=== PATIENT | male | born 1975 | race African-American/Black ===

== ENCOUNTER → 2019-12-08 17:38 | Outpatient (BNVA) | payer MEDICAID, SELFPAY | PROVIDERS: Family Provider Nurse Practitioner; PCP Nurse Practitioner; Visit Provider Nurse Practitioner Family | DX: G89.4 Chronic pain syndrome (principal); M54.16 Radiculopathy, lumbar region | CPT/HCPCS: 81000 ==

== ENCOUNTER → 2020-12-11 10:05 | Outpatient (BNVA) | payer MEDICAID, SELFPAY | PROVIDERS: Family Provider Nurse Practitioner; PCP Nurse Practitioner; Visit Provider Family Medicine Adult Medicine | DX: G89.4 Chronic pain syndrome (principal); M10.9 Gout, unspecified; M54.16 Radiculopathy, lumbar region; I10 Essential (primary) hypertension; E66.01 Morbid (severe) obesity due to excess calories; Z68.41 Body mass index [BMI] 40.0-44.9, adult; M19.90 Unspecified osteoarthritis, unspecified site | CPT/HCPCS: 80053; 80061; 83036; 84443; 84550; 85025 ==

== ENCOUNTER → 2021-09-26 08:39 | Outpatient (BNVA) | payer MEDICAID, SELFPAY | PROVIDERS: Family Provider Nurse Practitioner; PCP Family Medicine Adult Medicine; Visit Provider Family Medicine Adult Medicine | DX: I10 Essential (primary) hypertension (principal); E66.01 Morbid (severe) obesity due to excess calories; Z68.41 Body mass index [BMI] 40.0-44.9, adult; M10.9 Gout, unspecified; Z82.61 Family history of arthritis; G89.4 Chronic pain syndrome; M19.90 Unspecified osteoarthritis, unspecified site; Z13.6 Encounter for screening for cardiovascular disorders | CPT/HCPCS: 80053; 84550; 85025; 85651; 86140; 86160; 86162; 86235; 86255; 86376; 86431 ==

== ENCOUNTER → 2021-11-14 08:01 | Outpatient (BNVA) | payer MEDICAID, SELFPAY | PROVIDERS: Family Provider Nurse Practitioner; PCP Family Medicine Adult Medicine; Visit Provider Internal Medicine | DX: M10.9 Gout, unspecified (principal); M19.90 Unspecified osteoarthritis, unspecified site; G89.4 Chronic pain syndrome; Z11.59 Encounter for screening for other viral diseases; F17.210 Nicotine dependence, cigarettes, uncomplicated | CPT/HCPCS: 36415; 72040; 72100; 73620; 82306; 82550; 86200; 86704; 86803; 87340; 99204 ==

== ENCOUNTER → 2021-11-28 08:07 | Outpatient (BNVA) | payer MEDICAID, SELFPAY | PROVIDERS: Family Provider Nurse Practitioner; PCP Family Medicine Adult Medicine; Visit Provider Internal Medicine | DX: M10.9 Gout, unspecified (principal); M19.90 Unspecified osteoarthritis, unspecified site; Z79.899 Other long term (current) drug therapy; E55.9 Vitamin D deficiency, unspecified; F17.210 Nicotine dependence, cigarettes, uncomplicated | CPT/HCPCS: 99214 ==

== ENCOUNTER 2022-03-21 15:31 | Emergency (ER) | payer MEDICAID, SELFPAY ==
[2022-03-21 15:49] VITALS: BP 166/93; PULSE 92; RESP 18; TEMP 36.8; O2SAT 94; BMI 38.9
--- NOTE | 2022-03-21 16:02 | W.ED.BACK ---
HPI - Back Pain/Injury General: Chief Complaint: Back Pain/Injury Stated Complaint: Lower back pain Time Seen by Provider: 03/21/22 16:01 History of Present Illness: Patient is a 47-year-old male comes to the ED with lower back pain. Patient says 2 days ago he was lifting some furniture and felt some pain in the lower back afterwards. Denies any pain radiating down his legs. He has been taking Tylenol to help with pain. He rates his pain currently 8 out of 10 and it is in bilateral lumbar region. Denies any cauda equina symptoms. Denies any fall or trauma to cause back pain. Associated symptoms: Deny abdominal pain, chills, dysuria, fatigue, fever(s), hematuria, nausea or vomiting Review of Systems Const: Denies: fever(s), chills or fatigue Eyes: Denies: change in vision or eye discomfort ENMT: Denies: throat pain, odynophagia, nasal discharge or nasal congestion Card: Denies: chest pain, palpitations, edema, swelling of feet/ankles, dyspnea on exertion or orthopnea Resp: Denies: dyspnea, productive cough or non-productive cough GI: Denies: abdominal pain, nausea, vomiting, diarrhea, constipation or hematochezia : Denies: flank pain, difficulty urinating, dysuria or hematuria Musc: Reports: back pain; Denies: neck pain or extremity swelling Skin/Breast: Denies: rash or new lesions Neuro: Denies: headache(s), numbness in extremities or weakness in extremities [facility] ED PFSH: Medical History (Updated 03/21/22 @ 16:07 by JULIET Beatty) Chronic pain disorder Depression Family history of rheumatoid arthritis Gout Hypertension Morbid obesity with BMI of 40.0-44.9, adult Osteoarthritis Radiculopathy, lumbar region Uncontrolled stage 2 hypertension Surgical History History of nasal septoplasty Family History (Updated 11/14/21 @ 08:53 by Bela Espinosa LPN) Other Cancer Diabetes Hyperlipidemia Hypertension Lupus Rheumatoid arthritis Stroke Denies family history of CAD (coronary artery disease) Chronic kidney disease (CKD) Social History (Updated 11/14/21 @ 08:53 by Bela Espinosa LPN) Smoking and tobacco status: current some day smoker cigarettes [ Other cigarette details: socially] Alcohol intake: current Alcohol intake frequency: holidays/special occasions only Marital status: Number of children: 2 Current occupational status: disabled History of recent travel: No Physical Exam Const: COMMON NORMALS: patient oriented x3 and alert GENERAL APPEARANCE: cooperative and comfortable HENMT: COMMON NORMALS: normocephalic HEAD & SCALP: normocephalic MOUTH: Normal oral and palatal mucosa present THROAT: posterior oropharynx normal and uvula midline Neck/C-Spine: COMMON NORMALS: supple GENERAL: Yes normal visual inspection Resp: COMMON NORMALS: normal respiratory effort, No retractions, No use of accessory muscles and clear to auscultation bilaterally AUSCULTATION: clear to auscultation bilaterally Cardio: COMMON NORMALS: regular rate, regular rhythm, S1 normal heart sound present, S2 normal heart sound present, No gallops present (Cardio), No clicks present (Cardio), No murmurs present (Cardio) and Peripheral pulses 2+ throughout RATE: regular rate RHYTHM: regular rhythm HEART SOUNDS: S1 normal heart sound present and S2 normal heart sound present PERIPHERAL PULSES: Peripheral pulses 2+ throughout GI: COMMON NORMALS: Normal to inspection, nondistended, normoactive bowel sounds present, Soft to palpation, non-tender and no masses PALPATION: Yes Soft to palpation : COMMON NORMALS: Yes no CVA tenderness BLADDER/KIDNEY EXAM: Yes no CVA tenderness Back/Pelvis: COMMON NORMALS: no CVA tenderness LUMBAR SPINE/LOWER BACK: No lumbar spinal tenderness and Yes paraspinal muscle tenderness Lumbar paraspinal muscle tenderness: bilateral Extremity: COMMON NORMALS: normal to inspection Neuro: COMMON NORMALS: patient oriented x3 SENSORIUM/ORIENTATION: Yes alert GAIT: Yes Normal gait present Skin: GENERAL SKIN EXAM: dry skin Course Vital Signs: Vital signs: Vital Signs Temperature 98.3 F 03/21/22 15:49 Pulse Rate 92 03/21/22 15:49 Respiratory Rate 18 03/21/22 15:49 Blood Pressure 166/93 03/21/22 15:49 Pulse Oximetry 94 03/21/22 15:49 Oxygen Delivery Me thod 03/21/22 15:49 MDM - Back Pain/Injury Medical Decision Making Patient is a 47-year-old male comes to the ED with lower back pain. He says 2 days ago he was lifting some furniture and strained his lower back. Denies any cauda equina symptoms or any pain radiating down into his legs. Denies any trauma or fall to cause pain. Vitals are stable. Patient appears in no acute distress. He has some lumbar paraspinal muscle tenderness bilaterally and the rest of exam is benign. Patient was given a dose of Toradol, Norflex and steroid here in the ED. He was diagnosed with lumbar strain and discharged home with a prescription for Celebrex, muscle relaxer and steroid. Told to follow-up with PCP in the next week for reevaluation. Patient understood and agreed with plan. Discharge Plan Discharge Patient Disposition: Home Clinical Impression: Low back strain Qualifiers: Encounter type: initial encounter Qualified Code(s): S39.012A - Strain of muscle, fascia and tendon of lower back, initial encounter Condition: Stable Prescriptions: New Celebrex 100 mg capsule 100 mg PO BID PRN (Reason: pain) Qty: 30 0RF Medrol (Joseph) 4 mg tablets,dose pack See Rx Instructions .ROUTE .COMPLEX Qty: 21 0RF Rx Instructions: orally per package directions cyclobenzaprine 10 mg tablet 10 mg PO BID PRN (Reason: muscle spasm) Qty: 20 0RF No Action clonidine HCl 0.2 mg tablet 0.2 mg PO BID Qty: 60 5RF cholecalciferol (vitamin D3) 1,250 mcg (50,000 unit) capsule 50,000 unit PO .qweek Qty: 14 0RF colchicine 0.6 mg capsule See Rx Instructions PO .COMPLEX Qty: 30 0RF Rx Instructions: take TID x 5 days for onset of gout flare PO PRN; acetaminophen [Tylenol Arthritis Pain] 650 mg tablet extended release 2,600 mg PO Q8H Label Comments: takes 4-5 daily but can take up to 10 tabs daily allopurinol 100 mg tablet See Rx Instructions .ROUTE .COMPLEX Qty: 60 5RF Dose Instruction: TAKE 2 TABLETS BY MOUTH DAILY FOR GOUT Rx Instructions: TAKE 2 TABLETS BY MOUTH DAILY FOR GOUT amlodipine 10 mg tablet See Rx Instructions .ROUTE .COMPLEX Qty: 30 5RF Dose Instruction: TAKE 1 TABLET BY MOUTH DAILY Rx Instructions: TAKE 1 TABLET BY MOUTH DAILY lisinopril-hydrochlorothiazide 20-25 mg tablet See Rx Instructions .ROUTE .COMPLEX Qty: 30 5RF Dose Instruction: TAKE 1 TABLET BY MOUTH IN THE MORNING Rx Instructions: TAKE 1 TABLET BY MOUTH IN THE MORNING diclofenac sodium [Voltaren Arthritis Pain] 1 % gel 4 g topical QID Qty: 100 2RF Rx Instructions: apply to single knee, ankle, foot; for foot includes sole/toes/top of foot baclofen 10 mg tablet See Rx Instructions .ROUTE .COMPLEX Qty: 90 1RF Dose Instruction: TAKE 1 TABLET BY MOUTH THREE TIMES DAILY NEEDED FOR MUSCLE SPASM Rx Instructions: TAKE 1 TABLET BY MOUTH THREE TIMES DAILY NEEDED FOR MUSCLE SPASM prednisone 5 mg tablet 5 mg PO DAILY Qty: 45 3RF tizanidine 4 mg capsule 4 mg PO DAILY PRN (Reason: muscle spasticity) Qty: 30 3RF Rx Instructions: 1 cap at bedtime meloxicam 15 mg tablet See Rx Instructions .ROUTE .COMPLEX Qty: 30 2RF Dose Instruction: TAKE 1 TABLET BY MOUTH DAILY Rx Instructions: TAKE 1 TABLET BY MOUTH DAILY Discharge Orders: Discharge ED (Routine); Ordered 03/21/22 Ordered By: Ty Alvarenga Referrals: Forest Guo MD [Primary Care Provider] - Discharge Diet: Regular Discharge Activity: Increase activity as tolerated Patient Instructions: Low Back Strain (ED), Lower Back Exercises (ED) Activity Restrictions/Additional Instructions: Follow-up with medical provider as directed in the next 5 to 7 days reevaluation. Take medications as prescribed. Use heat pack on lower back to help with symptoms. Also stretch lower back muscles daily. Return to the ER or your medical provider if condition worsens. Please read and understand discharge instructions. Thank you for choosing [facility] for your healthcare needs today. Please realize this is an emergency room and that we are providing you with a medical screening exam and this may not be complete and all inclusive of all the testing and or work up that you may need to determine your ailment or severity of your illness. It is very important that you follow up as instructed or that you return to the Emergency Department should you have concerns or if your condition changes or worsens in any way. Coding Level of Care Code ED Slat Basket Maker Machine for Bony Dietrich Exam Comprehensive
[2022-03-21] MEDS: ketorolac 60 mg/2 mL INJ IM (16:15)
[2022-03-21] MEDS: orphenadrine 30 mg/mL Inj 2 mL 60 MG IM (16:16)
== END 2022-03-21 16:20 | disposition home or self-care (01) ==
PROVIDERS: Emergency Provider Physician Assistant; PCP Family Medicine Adult Medicine
DX: S39.012A Strain of muscle, fascia and tendon of lower back, initial encounter (principal); I10 Essential (primary) hypertension; F17.210 Nicotine dependence, cigarettes, uncomplicated; X50.0XXA Overexertion from strenuous movement or load, initial encounter
CPT/HCPCS: 96372; 99284; J1885; J2360; J2930

== ENCOUNTER → 2022-04-28 08:24 | Outpatient (BNVA) | payer MEDICAID, SELFPAY | PROVIDERS: PCP Family Medicine Adult Medicine; Visit Provider Anesthesiology Pain Medicine | DX: G89.29 Other chronic pain (principal); M54.16 Radiculopathy, lumbar region; M47.816 Spondylosis without myelopathy or radiculopathy, lumbar region; M25.562 Pain in left knee; E66.01 Morbid (severe) obesity due to excess calories; Z68.41 Body mass index [BMI] 40.0-44.9, adult; M25.561 Pain in right knee; Z87.891 Personal history of nicotine dependence | CPT/HCPCS: 99205 ==

== ENCOUNTER 2022-05-19 11:00 | Outpatient (CLI) | payer MEDICAID, SELFPAY ==
--- NOTE | 2022-05-19 11:02 | XR_ITS ---
WS: [id number] Exam: XR cervical spine 3V* [id number] Date/Time of Exam: 05/19/2022 11:03 AM Reason For Exam: M54.12 - Radiculopathy, cervical region Comparison 11/14/2021. No acute fracture or dislocation. There is straightening. Mild spondylosis from C4 to C7. Posterior e lements are intact. Normal paraspinal soft tissues. The odontoid is intact. XR/XR cervical spine 3V* [id number] IMPRESSION: 1. Straightening of the C-spine. No fracture or malalignment noted. No change.
== END 2022-05-19 11:01 | disposition home or self-care (01) ==
LOC: RAD 11:02
PROVIDERS: PCP Family Medicine Adult Medicine; Visit Provider Anesthesiology Pain Medicine
DX: M54.12 Radiculopathy, cervical region (principal)
CPT/HCPCS: 72040

== ENCOUNTER → 2022-06-05 08:37 | Outpatient (BNVA) | payer MEDICAID, SELFPAY | PROVIDERS: PCP Family Medicine Adult Medicine; Visit Provider Internal Medicine | DX: M10.9 Gout, unspecified (principal); M19.90 Unspecified osteoarthritis, unspecified site; M25.512 Pain in left shoulder; E55.9 Vitamin D deficiency, unspecified; E66.3 Overweight; Z68.39 Body mass index [BMI] 39.0-39.9, adult | CPT/HCPCS: 99214 ==

== ENCOUNTER 2022-06-10 06:47 | Outpatient (CLI) | payer MEDICAID, SELFPAY ==
--- NOTE | 2022-06-10 07:00 | CT_ITS ---
WS: [id number] CT LUMBAR SPINE TECHNIQUE: Noncontrast CT of the lumbar spine with coronal and sagittal reformatted images. CLINICAL INFORMATION: M54.16 - Radiculopathy, lumbar region COMPARISON: MRI 2006 DLP: 1812.[address] scans at [facility] use at least one of these dose optimization techniques: automated e xposure control; mA and/or kV adjustment per patient size (includes targeted exams where dose is matc hed to clinical indication); or iterative reconstruction. FINDINGS: Slight retrolisthesis L4 on L5. Vacuum disc phenomenon L4-L5 and L5-S1. Chronic spondylolysis L5-S1. No acute compression fractures. L1-L2: Mild facet arthropathy. Spinal canal and foramen are patent. L2-L3: Mild annular bulging. Slight effacement of the ventral thecal sac. Mild facet arthropathy. Sli ght narrowing of the subarticular recess bilaterally. Mild RIGHT foraminal narrowing. L3-L4: Mild annular bulging with slight impingement on the RIGHT subarticular recess and traversing R IGHT L4 nerve root. RIGHT foraminal protrusion impinges the exiting RIGHT L3 nerve root with moderate RIGHT foraminal narrowing. LEFT foramen appears patent. L4-L5: Slight retrolisthesis. Mild annular bulging. Suggestion of a shallow LEFT pericentral protrusi on with impingement on the traversing LEFT L5 nerve root. Mild central canal stenosis. Mild RIGHT gre ater than LEFT foraminal narrowing. Moderate facet arthropathy. L5-S1: Mild disc bulging with slight effacement of ventral thecal sac. Chronic spondylolysis. Slight effacement of ventral thecal sac. Moderate facet arthropathy. Moderate LEFT greater than RIGHT bony f oraminal narrowing. Subchondral cystic change along the sacroiliac joints bilaterally. CT/CT lumbar spine wo con* [id number] IMPRESSION: 1. RIGHT foraminal protrusion L3-L4 impinges the exiting RIGHT L3 nerve root w ith moderate RIGHT foraminal narrowing. Correlation RIGHT L3 nerve root symptom s. 2. Shallow LEFT pericentral protrusion L4-L5 impinges the traversing LEFT L5 n erve root in the subarticular recess. 3. Chronic spondylolysis L5-S1. No significant anterolisthesis. Vacuum disc ph enomenon at this level. 4. Moderate chronic bilateral bony foraminal narrowing L5-S1
== END 2022-06-10 06:48 | disposition home or self-care (01) ==
LOC: RAD 06:48
PROVIDERS: PCP Family Medicine Adult Medicine; Visit Provider Anesthesiology Pain Medicine
DX: M54.16 Radiculopathy, lumbar region (principal); M51.26 Other intervertebral disc displacement, lumbar region; M43.07 Spondylolysis, lumbosacral region
CPT/HCPCS: 72131

== ENCOUNTER 2022-06-10 07:02 | Outpatient (CLI) | payer MEDICAID, SELFPAY ==
--- NOTE | 2022-06-10 07:05 | XR_ITS ---
WS: [id number] Exam: XR shoulder LT min 2V* [id number] Date/Time of Exam: 06/10/2022 7:05 AM Reason For Exam: M06.9 - Rheumatoid arthritis, unspecified Comparison 09/24/2010. No fracture or dislocation. Moderate degenerative change of the glenohumeral joint and the AC joint. Bone spurring along the inferior margin of the AC joint. Normal soft tissues. XR/XR shoulder LT min 2V* [id number] IMPRESSION: 1. Moderate degenerative changes of the AC joint and glenohumeral joint. 2. No fracture or other significant finding.
[2022-06-10 07:52] LABS: Alanine Aminotransferase 29 U/L (0-41); Albumin Level 4.4 g/dL (3.5-5.2); Alkaline Phosphatase 104 U/L (40-130); Anion Gap 14.6 (5-19); Aspartate Amino Transferase 16 U/L (0-40); Blood Urea Nitrogen 13 mg/dL (6-20); Calcium 9.9 mg/dL (8.5-10.5); Carbon Dioxide 31 mmol/L (22-29); Chloride 101 mmol/L (98-107); Globulin 3.2 g/dL (1.3-4.6); Glomerular Filtration Rate 77.9 mL/min (90-130); Glucose 105 mg/dL (65-115); Osmolality Calculated 296 mOsm/kg (285-295); Potassium 3.6 mmol/L (3.5-5.1); Sodium 143 mmol/L (136-145); Total Bilirubin 0.5 mg/dL (0.15-1.2); Total Protein 7.6 g/dL (6.6-8.7); Uric Acid 6.8 mg/dL (3.4-7.0)
== END 2022-06-10 07:03 | disposition home or self-care (01) ==
LOC: RAD 07:04
PROVIDERS: PCP Family Medicine Adult Medicine; Visit Provider Internal Medicine
DX: M06.9 Rheumatoid arthritis, unspecified (principal); M25.512 Pain in left shoulder; M54.50 Low back pain, unspecified; R79.89 Other specified abnormal findings of blood chemistry
CPT/HCPCS: 73030; 80053; 84550

== ENCOUNTER → 2022-06-11 12:56 | Outpatient (BNVA) | payer MEDICAID, SELFPAY | PROVIDERS: PCP Family Medicine Adult Medicine; Visit Provider Anesthesiology Pain Medicine | DX: M17.11 Unilateral primary osteoarthritis, right knee (principal) | CPT/HCPCS: 20610; J1040; J3490 ==

== ENCOUNTER 2022-06-30 15:17 | Emergency (ER) | payer MEDICAID, SELFPAY ==
[2022-06-30 15:25] VITALS: PULSE 126; RESP 18; TEMP 37.4; O2SAT 94
[2022-06-30] MEDS: ketorolac 30 mg/mL INJ IVP (16:52)
[2022-06-30] MEDS: sodium chloride 0.9% 1,000 ML 999 ML IV ×2 (16:52→19:40)
[2022-06-30] MEDS: ondansetron 2 mg/ML SDV 2 mL 4 MG IVP ×2 (16:52→21:00)
[2022-06-30 17:19] LABS: Basophils % 0.2 %; Eosinophils % 0.3 %; Hematocrit 51.5 % (42.0-52.0); Hemoglobin 17.4 g/dL (11.7-16.6); Lymphocytes # 0.2 10^3/uL (0.8-4.8); Lymphocytes % 1.5 %; Mean Corpuscular HGB Conc 33.8 g/dL (30.0-36.0); Mean Corpuscular Hemoglobin 30.4 pg (28.0-34.0); Mean Corpuscular Volume 89.9 fl (80-94); Mean Platelet Volume 10.8 fL (7.4-10.4); Monocytes # 0.6 10^3/uL (0.2-0.9); Monocytes % 4.8 %; Neutrophils % 92.8 %; Nucleated Red Blood Cells % 0 %; Platelet Count 233 10^3/cmm (130-400); Red Blood Count 5.73 10^6/uL (4.1-5.3); Red Cell Distribution Width 12.9 % (12.1-15.1); White Blood Count 11.6 10^3/uL (4.0-10.0)
[2022-06-30 18:13] LABS: Alanine Aminotransferase 24 U/L (0-41); Albumin Level 3.8 g/dL (3.5-5.2); Alkaline Phosphatase 75 U/L (40-130); Anion Gap 13.5 (5-19); Aspartate Amino Transferase 13 U/L (0-40); Blood Urea Nitrogen 20 mg/dL (6-20); Calcium 8.6 mg/dL (8.5-10.5); Carbon Dioxide 28 mmol/L (22-29); Chloride 103 mmol/L (98-107); Globulin 3.2 g/dL (1.3-4.6); Glomerular Filtration Rate 77.9 mL/min (90-130); Glucose 132 mg/dL (65-115); Lipase 18 U/L (13-60); Osmolality Calculated 296 mOsm/kg (285-295); Potassium 3.5 mmol/L (3.5-5.1); Sodium 141 mmol/L (136-145); Total Bilirubin 0.7 mg/dL (0.15-1.2)
--- NOTE | 2022-06-30 18:43 | CTR_ITS ---
PROCEDURE INFORMATION: Exam: CT Abdomen And Pelvis With Contrast Exam date and time: 06/30/2022 8:02 PM Age: 47 years old Clinical indication: Nausea and vomiting; Abdominal pain; Generalized; Additional info: Abdominal pain, vomiting, elevated wbc TECHNIQUE: Imaging protocol: Computed tomography of the abdomen and pelvis with contrast. Radiation optimization: All CT scans at this facility use at least one of these dose optimization techniques: automated exposure control; mA and/or kV adjustment per patient size (includes targeted exams where dose is matched to clinical indication); or iterative reconstruction. Contrast material: OMNIPAQUE 350; Contrast volume: 95 ml; Contrast route: INTRAVENOUS (IV); COMPARISON: CT abdomen pelvis wo con [id number] 05/28/2016 4:24 AM RADIATION DOSE METRICS: Total DLP (mGy-cm): 1415.03 FINDINGS: Lungs: Bibasilar atelectasis versus infiltrate. Liver: Several hepatic cysts. Gallbladder and bile ducts: Cholelithiasis. Pancreas: Normal. No ductal dilation. Spleen: Normal. No splenomegaly. Adrenal glands: Normal. No mass. Kidneys and ureters: Normal. No hydronephrosis. Stomach and bowel: Prominent fluid in the small bowel without dilation suggestive of an enteritis. Diverticulosis without diverticulitis. Appendix: No evidence of appendicitis. Intraperitoneal space: Unremarkable. No free air. No significant fluid collection. Vasculature: Unremarkable. No abdominal aortic aneurysm. Lymph nodes: Unremarkable. No enlarged lymph nodes. Urinary bladder: Unremarkable as visualized. Reproductive: Unremarkable as visualized. Bones/joints: Chronic L5 pars interarticularis defects. Soft tissues: Small umbilical hernia containing omentum without bowel or inflammation. CT/CT abdomen pelvis w con* [id number] IMPRESSION: 1. Prominent fluid in the small bowel without dilation suggestive of an enteritis. 2. Chronic L5 pars interarticularis defects. 3. Bibasilar atelectasis versus infiltrate. 4. Several hepatic cysts. 5. Cholelithiasis. 6. Small umbilical hernia containing omentum without bowel or inflammation. 7. Diverticulosis without diverticulitis.
[2022-06-30] MEDS: acetaminophen 500 mg Tablet 1000 MG PO (19:05)
[2022-06-30 19:21] VITALS: BP 125/68; PULSE 120; RESP 17; TEMP 36.9; O2SAT 92
--- NOTE | 2022-06-30 19:28 | XRR_ITS ---
PROCEDURE INFORMATION: Exam: XR Chest Exam date and time: 06/30/2022 8:10 PM Age: 47 years old Clinical indication: Cough and fever and shortness of breath TECHNIQUE: Imaging protocol: Radiologic exam of the chest. Views: 2 views. COMPARISON: CR XR chest 1V [id number] 10/11/2018 2:53 PM FINDINGS: Lungs: Bibasilar atelectasis versus infiltrate. Pleural spaces: Unremarkable. No pleural effusion. No pneumothorax. Heart/Mediastinum: Cardiomegaly. Bones/joints: Unremarkable. XR/XR chest 2V* [id number] IMPRESSION: 1. Bibasilar atelectasis versus infiltrate. 2. Cardiomegaly.
--- NOTE | 2022-06-30 20:04 | W.ED.NAVMDI ---
HPI - Nausea/Vomiting/Diarrhea General: Chief complaint: Nausea/Vomiting/Diarrhea Stated complaint: D/V throwing up Time Seen by Provider: 06/30/22 16:17 History of Present Illness: Patient is in today for nausea, vomiting, diarrhea. He reports that he woke up this morning about 2 AM with significant nausea, vomiting, diarrhea. He reports he has had 3 diarrhea stools today and has thrown up 3 times today. He reports he is unable to keep any liquids down. He reports that he has felt feverish and chilled all day long. He reports significant body aches all over. Associated nausea: Yes Associated symtoms: Reports fatigue and nausea; Denies chest pain, dysuria or palpitations Review of Systems Const: Reports: fever(s), chills, body aches and fatigue Card: Denies: chest pain or palpitations Resp: Denies: dyspnea, productive cough or non-productive cough GI: Reports: abdominal pain, nausea and vomiting : Denies: flank pain, difficulty urinating, dysuria, urinary frequency, urinary urgency or urinary hesitancy PFSH ED PFSH: Medical History Chronic back pain Chronic pain disorder Depression Family history of [place]'s disease Family history of rheumatoid arthritis Gout Hypertension Morbid obesity with BMI of 40.0-44.9, adult BETHANIE on CPAP Osteoarthritis Radiculopathy, lumbar region Uncontrolled stage 2 hypertension Surgical History History of nasal septoplasty Family History Other Cancer Diabetes Hyperlipidemia Hypertension Lupus Rheumatoid arthritis Stroke Denies family history of CAD (coronary artery disease) Chronic kidney disease (CKD) Social History Smoking and tobacco status: former smoker Alcohol intake: current Alcohol intake frequency: holidays/special occasions only Desire information about alcohol rehabilitation?: No Counseling given: No Desire information about substance/drug rehabilitation?: No Counseling given: No Adopted: No Caregiver/support person: No Lives independently: Yes Marital status: Number of children: 2 Current occupational status: disabled History of recent travel: No Physical Exam Const: COMMON NORMALS: patient oriented x3 and alert OTHER: Patient is ill-appearing nontoxic Neck/C-Spine: COMMON NORMALS: no JVD Resp: COMMON NORMALS: normal respiratory effort, No use of accessory muscles and clear to auscultation bilaterally AUSCULTATION: clear to auscultation bilaterally Cardio: COMMON NORMALS: no JVD, regular rate, regular rhythm, S1 normal heart sound present, S2 normal heart sound present and No murmurs present (Cardio) RATE: regular rate RHYTHM: regular rhythm HEART SOUNDS: S1 normal heart sound present and S2 normal heart sound present GI: INSPECTION: Yes normal to inspection AUSCULTATION: Yes normoactive bowel sounds PALPATION: Yes Tenderness to palpation present (GI) (Epigastric) : COMMON NORMALS: Yes no CVA tenderness BLADDER/KIDNEY EXAM: Yes no CVA tenderness Back/Pelvis: COMMON NORMALS: no CVA tenderness Neuro: COMMON NORMALS: patient oriented x3 SENSORIUM/ORIENTATION: Yes alert Course Vital Signs: Vital signs: Vital Signs Temperature 98.4 F 06/30/22 21:53 Pulse Rate 119 H 06/30/22 21:53 Respiratory Rate 16 06/30/22 21:53 Blood Pressure 130/80 06/30/22 21:53 Pulse Oximetry 93 06/30/22 21:53 Oxygen Delivery Me thod 06/30/22 21:53 MDM - Nausea/Vomiting/Diarrhea Medical Decision Making Consider gastroenteritis, influenza, dehydration Toradol given for body aches, Zofran for nausea, IV fluids administered. Labs indicate a mildly elevated white blood cell count with some abdominal pain and a history of diverticulitis I will go ahead and order a CT scan abdomen. Patient SPO2 running 92 to 94% on room air. Add chest x-ray given patient's white count. Chest x-ray shows cardiomegaly and also atelectasis versus infiltrates. Patient has a history of uncontrolled hypertension I suspect the cardiomegaly is not a new finding however I cannot confirm this. Lungs are clear to auscultation on exam. Respirations are even and nonlabored. Minimal/trace amount bilateral lower extremity pedal edema. Patient denies a history of any heart problems except for high blood pressure. Second liter of fluid that was ordered is discontinued. Patient is able to tolerate p.o. fluids. We will continue to have patient hydrate via p.o. fluids rather than IV fluid bolus with a second liter. CT scan also shows hepatic cyst, cholelithiasis, diverticulosis, and prominent fluid in the small bowel without dilation suggestive of enteritis advised patient of findings on CT. Advised patient that symptoms are likely result of gastroenteritis. We discussed conservative care for this at home. We discussed the importance of staying hydrated. Send patient home with Zofran medication to help with nausea and vomiting. Also treat patient with Zithromax antibiotic to cover for community-acquired pneumonia. Advised patient on possible benefits and side effects of both medications. Patient is complaining of pain generalized body aches. He has received Toradol and Tylenol and is still reporting pain. I advised the patient that narcotics are typically not indicated in the case of body aches from fever and chills. Patient is insistent that he needs treatment for his pain prior to discharge. I did discuss the case with Dr. Armendariz who is agreeable to providing patient with a one-time dose of pain medication here. Advised patient of this. Discussed the need to cough and deep breathe at home to prevent further atelectasis development. Follow-up with primary care provider. Return to the ER as needed for any new or worsening symptoms including, but not limited to, inability to keep p.o. fluids down despite Zofran, inability to control fever despite Tylenol and Motrin, increased pain. Lab Data 06/30/22 16:39 06/30/22 16:39 Radiology Impressions Abdomen/Pelvis CT 06/30/22 18:43 IMPRESSION: 1. Prominent fluid in the small bowel without dilation suggestive of an enteritis. 2. Chronic L5 pars interarticularis defects. 3. Bibasilar atelectasis versus infiltrate. 4. Several hepatic cysts. 5. Cholelithiasis. 6. Small umbilical hernia containing omentum without bowel or inflammation. 7. Diverticulosis without diverticulitis. Chest X-Ray 06/30/22 19:28 IMPRESSION: 1. Bibasilar atelectasis versus infiltrate. 2. Cardiomegaly. Laboratory Results WBC 11.6 10^3/uL (4.0-10.0) H 06/30/22 16:39 RBC 5.73 10^6/uL (4.1-5.3) H 06/30/22 16:39 Hgb 17.4 g/dL (11.7-16.6) H 06/30/22 16:39 Hct 51.5 % (42.0-52.0) 06/30/22 16:39 MCV 89.9 fl (80-94) 06/30/22 16:39 MCH 30.4 pg (28.0-34.0) 06/30/22 16:39 MCHC 33.8 g/dL (30.0-36.0) 06/30/22 16:39 RDW 12.9 % (12.1-15.1) 06/30/22 16:39 Plt Count 233 10^3/cmm (130-400) 06/30/22 16:39 MPV 10.8 fL (7.4-10.4) H 06/30/22 16:39 Neut % (Auto) 92.8 % 06/30/22 16:39 Lymph % (Auto) 1.5 % 06/30/22 16:39 Charles % (Auto) 4.8 % 06/30/22 16:39 Eos % (Auto) 0.3 % 06/30/22 16:39 Baso % (Auto) 0.2 % 06/30/22 16:39 Neut # (Auto) 10.80 10^3/uL (1.8-7.7) H 06/30/22 16:39 Lymph # (Auto) 0.2 10^3/uL (0.8-4.8) L 06/30/22 16:39 Charles # (Auto) 0.6 10^3/uL (0.2-0.9) 06/30/22 16:39 Eos # (Auto) 0.0 10^3/uL (0.0-0.8) 06/30/22 16:39 Baso # (Auto) 0.0 10^3/uL (0.0-0.1) 06/30/22 16:39 Nucleated RBC % (auto) 0 % 06/30/22 16:39 Nucleated RBCs # 0.0 /100WBC 06/30/22 16:39 Sodium 141 mmol/L (136-145) 06/30/22 16:39 Potassium 3.5 mmol/L (3.5-5.1) 06/30/22 16:39 Chloride 103 mmol/L (98-107) 06/30/22 16:39 Carbon Dioxide 28 mmol/L (22-29) 06/30/22 16:39 Anion Gap 13.5 (5-19) 06/30/22 16:39 BUN 20 mg/dL (6-20) 06/30/22 16:39 Creatinine 1.2 mg/dL (0.7-1.2) 06/30/22 16:39 GFR Calculation 77.9 mL/min (90-130) L 06/30/22 16:39 Glucose 132 mg/dL (65-115) H 06/30/22 16:39 Calculated Osmolality 296 mOsm/kg (285-295) H 06/30/22 16:39 Calcium 8.6 mg/dL (8.5-10.5) 06/30/22 16:39 Total Bilirubin 0.7 mg/dL (0.15-1.2) 06/30/22 16:39 AST 13 U/L (0-40) 06/30/22 16:39 ALT 24 U/L (0-41) 06/30/22 16:39 Alkaline Phosphatase 75 U/L (40-130) 06/30/22 16:39 Total Protein 7.0 g/dL (6.6-8.7) 06/30/22 16:39 Albumin 3.8 g/dL (3.5-5.2) 06/30/22 16:39 Globulin 3.2 g/dL (1.3-4.6) 06/30/22 16:39 Lipase 18 U/L (13-60) 06/30/22 16:39 Discharge Plan Discharge Patient Disposition: Home Clinical Impression: Dehydration, Gastroenteritis, Atelectasis, Cardiomegaly Condition: Stable Prescriptions: New Zithromax Z-Joseph 250 mg tablet See Rx Instructions .ROUTE .COMPLEX Qty: 6 0RF Rx Instructions: For 250 mg dose pack: take 500 mg today (day 1), then 250 mg for 4 days (days 2-5) ondansetron 4 mg tablet,disintegrating 4 mg PO Q8H PRN (Reason: nausea and vomiting) 3 Days Qty: 9 0RF No Action colchicine 0.6 mg capsule See Rx Instructions PO .COMPLEX Qty: 30 0RF Rx Instructions: take TID x 5 days for onset of gout flare PO PRN; cyclobenzaprine 5 mg tablet 5 mg PO TID PRN (Reason: muscle spasm) Qty: 30 2RF prednisone 1 mg tablet See Rx Instructions PO DAILY Qty: 90 0RF Rx Instructions: part of a taper. 4mg po qday x 1 week, then 3mg po qday x 1 week, then 2.5mg po qday x 1 week, then 1mg orally daily; diclofenac sodium [Voltaren Arthritis Pain] 1 % gel 4 g topical QID Qty: 100 2RF Rx Instructions: apply to single knee, ankle, foot; for foot includes sole/toes/top of foot meloxicam 15 mg tablet See Rx Instructions .ROUTE .COMPLEX Qty: 30 2RF Dose Instruction: TAKE 1 TABLET BY MOUTH DAILY Rx Instructions: TAKE 1 TABLET BY MOUTH DAILY acetaminophen [Tylenol Arthritis Pain] 650 mg tablet extended release 2,600 mg PO Q8H Label Comments: takes 4-5 daily but can take up to 10 tabs daily methylprednisolone acetate [Depo-Medrol] 80 mg/mL suspension 80 mg Infiltration ONCE Qty: 1 0RF bupivacaine (PF) 0.25 % (2.5 mg/mL) solution 2.5 mg Infiltration ONCE Qty: 1 0RF methylprednisolone acetate [Depo-Medrol] 40 mg/mL suspension 40 mg Infiltration ONCE Qty: 1 0RF bupivacaine (PF) 0.25 % (2.5 mg/mL) solution 10 ml Infiltration ONCE Qty: 1 0RF prednisone 5 mg tablet 5 mg PO DAILY Qty: 45 3RF clonidine HCl 0.2 mg tablet 0.2 mg PO BID 30 Days Qty: 60 5RF allopurinol 100 mg tablet See Rx Instructions .ROUTE .COMPLEX Qty: 60 5RF Dose Instruction: TAKE 2 TABLETS BY MOUTH DAILY FOR GOUT Rx Instructions: TAKE 2 TABLETS BY MOUTH DAILY FOR GOUT amlodipine 10 mg tablet See Rx Instructions .ROUTE .COMPLEX Qty: 30 5RF Dose Instruction: TAKE 1 TABLET BY MOUTH DAILY Rx Instructions: TAKE 1 TABLET BY MOUTH DAILY lisinopril-hydrochlorothiazide 20-25 mg tablet See Rx Instructions .ROUTE .COMPLEX Qty: 30 5RF Dose Instruction: TAKE 1 TABLET BY MOUTH IN THE MORNING Rx Instructions: TAKE 1 TABLET BY MOUTH IN THE MORNING Celebrex 100 mg capsule 100 mg PO BID PRN (Reason: pain) Qty: 30 0RF cyclobenzaprine 10 mg tablet 10 mg PO BID PRN (Reason: muscle spasm) Qty: 20 0RF Discharge Orders: Discharge ED (Routine); Ordered 06/30/22 Ordered By: Lisa Lee Referrals: Forest Guo MD [Primary Care Provider] - Discharge Diet: As Directed Discharge Activity: Increase activity as tolerated Patient Instructions: Dehydration (ED), Acute Nausea and Vomiting (ED), Atelectasis (ED) Activity Restrictions/Additional Instructions: I recommend that if clear liquid diet for the next 24 hours then slowly advance to diet as tolerated with bland foods. Use the Zofran as directed as needed to help with nausea so that you are able to keep oral liquids down. Take antibiotics as directed. Make sure that you are coughing and deep breathing several times an hour to make sure that you are expanding the lungs fully to prevent development of pneumonia. Alternate Tylenol Motrin as needed for body aches, fever. Follow-up with primary care provider as needed. Return to the ER as needed for new or worsening symptoms. Coding Level of Care Code ED Ball Machine Operator for Chg Fwd Exam Detailed
[2022-06-30] MEDS: HYDROcodone-acetaminophen 5-325 mg Tablet 1 TAB PO (21:36)
[2022-06-30 21:53] VITALS: BP 130/80; PULSE 119; RESP 16; TEMP 36.9; O2SAT 93
== END 2022-06-30 21:51 | disposition home or self-care (01) ==
PROVIDERS: Emergency Provider Nurse Practitioner Family; PCP Family Medicine Adult Medicine
DX: K52.9 Noninfective gastroenteritis and colitis, unspecified (principal); E86.0 Dehydration; J98.11 Atelectasis; I51.7 Cardiomegaly; Z87.891 Personal history of nicotine dependence
CPT/HCPCS: 36415; 71046; 74177; 80053; 83690; 85025; 96361; 96374; 96375; 96376; 99285; J1885; J2405; J7030; Q9967

== ENCOUNTER 2022-08-12 20:00 | Outpatient (CLI) | payer MEDICAID, SELFPAY | END 2022-08-12 20:01 | disposition home or self-care (01) | LOC: SLEEP 08-13 07:21 | PROVIDERS: PCP Family Medicine Adult Medicine; Visit Provider Family Medicine Adult Medicine | DX: G47.33 Obstructive sleep apnea (adult) (pediatric) (principal) | CPT/HCPCS: 95810 ==

== ENCOUNTER → 2022-09-01 10:25 | Outpatient (BNVA) | payer MEDICAID, SELFPAY | PROVIDERS: PCP Family Medicine Adult Medicine; Visit Provider Internal Medicine | DX: M10.9 Gout, unspecified (principal); M19.90 Unspecified osteoarthritis, unspecified site; E55.9 Vitamin D deficiency, unspecified | CPT/HCPCS: 99213 ==

== ENCOUNTER → 2022-09-07 09:46 | Outpatient (BNVA) | payer MEDICAID, SELFPAY | PROVIDERS: PCP Family Medicine Adult Medicine; Visit Provider Anesthesiology Pain Medicine | DX: G89.29 Other chronic pain (principal); M25.562 Pain in left knee; M54.50 Low back pain, unspecified; M25.512 Pain in left shoulder; M19.90 Unspecified osteoarthritis, unspecified site; M47.816 Spondylosis without myelopathy or radiculopathy, lumbar region; E66.01 Morbid (severe) obesity due to excess calories; Z68.41 Body mass index [BMI] 40.0-44.9, adult | CPT/HCPCS: 99213; 99214 ==

== ENCOUNTER → 2022-09-24 13:40 | Outpatient (BNVA) | payer MEDICAID, SELFPAY | PROVIDERS: PCP Family Medicine Adult Medicine; Visit Provider Anesthesiology Pain Medicine | DX: G89.29 Other chronic pain (principal); M25.562 Pain in left knee; M19.012 Primary osteoarthritis, left shoulder | CPT/HCPCS: 20610 ==

== ENCOUNTER 2022-10-15 07:28 | Outpatient (CLI) | payer MEDICAID, SELFPAY ==
[2022-10-15 07:52] LABS: Basophils % 0.3 %; Eosinophils # 0.2 10^3/uL (0.0-0.8); Eosinophils % 2.6 %; Hematocrit 46.9 % (42.0-52.0); Hemoglobin 15.7 g/dL (11.7-16.6); Lymphocytes # 2.1 10^3/uL (0.8-4.8); Lymphocytes % 28.6 %; Mean Corpuscular HGB Conc 33.5 g/dL (30.0-36.0); Mean Corpuscular Volume 86.5 fl (80-94); Mean Platelet Volume 10.3 fL (7.4-10.4); Monocytes # 0.6 10^3/uL (0.2-0.9); Monocytes % 8.5 %; Neutrophils # 4.43 10^3/uL (1.8-7.7); Neutrophils % 59.6 %; Nucleated Red Blood Cells % 0 %; Platelet Count 287 10^3/cmm (130-400); Red Blood Count 5.42 10^6/uL (4.1-5.3); Red Cell Distribution Width 12.6 % (12.1-15.1); White Blood Count 7.4 10^3/uL (4.0-10.0)
[2022-10-15 08:00] LABS: Erythrocyte Sedimentation Rate 8 mm/hr (0-10)
[2022-10-15 08:15] LABS: Alanine Aminotransferase 39 U/L (0-41); Albumin Level 4.1 g/dL (3.5-5.2); Alkaline Phosphatase 90 U/L (40-130); Anion Gap 15.4 (5-19); Aspartate Amino Transferase 21 U/L (0-40); Blood Urea Nitrogen 15 mg/dL (6-20); Calcium 9.5 mg/dL (8.5-10.5); Carbon Dioxide 32 mmol/L (22-29); Chloride 103 mmol/L (98-107); Globulin 3.3 g/dL (1.3-4.6); Glucose 105 mg/dL (65-115); Osmolality Calculated 305 mOsm/kg (285-295); Potassium 3.4 mmol/L (3.5-5.1); Sodium 147 mmol/L (136-145); Total Bilirubin 0.5 mg/dL (0.15-1.2); Total Protein 7.4 g/dL (6.6-8.7); Uric Acid 7.4 mg/dL (3.4-7.0)
--- NOTE | 2022-10-15 13:13 | XR_ITS ---
WS: [id number] EXAMINATION: XR knee RT 1-2V [id number] REASON FOR EXAM: M10.9 - Gout, unspecified COMPARISON: 09/24/2010 ORDER DATE: 10/15/2022 1:17 PM FINDINGS: There is no sign of any acute osseous or articular abnormality with a minor ossicle or spur projectin g from the medial tibial spine. There are no specific soft tissue abnormalities. XR/XR knee RT 1-2V [id number] IMPRESSION: No acute change
--- NOTE | 2022-10-15 13:13 | XR_ITS ---
WS: [id number] EXAMINATION: XR knee LT 1-2V [id number] REASON FOR EXAM: M10.9 - Gout, unspecified COMPARISON: None available. ORDER DATE: 10/15/2022 1:17 PM FINDINGS: There is no sign of any acute osseous or articular abnormality. There are no specific soft tissue abn ormalities. XR/XR knee LT 1-2V [id number] IMPRESSION: No acute abnormality
== END 2022-10-15 07:29 | disposition home or self-care (01) ==
PROVIDERS: PCP Family Medicine Adult Medicine; Visit Provider Internal Medicine
DX: M10.9 Gout, unspecified (principal); M19.90 Unspecified osteoarthritis, unspecified site; M25.512 Pain in left shoulder; M54.50 Low back pain, unspecified; R79.89 Other specified abnormal findings of blood chemistry; I10 Essential (primary) hypertension
CPT/HCPCS: 36415; 73560; 80053; 84550; 85025; 85651; 86140; 99213

== ENCOUNTER 2022-12-03 20:00 | Outpatient (CLI) | payer MEDICAID, SELFPAY | END 2022-12-03 20:01 | disposition home or self-care (01) | LOC: SLEEP 12-04 04:31 | PROVIDERS: PCP Family Medicine Adult Medicine; Visit Provider Family Medicine Adult Medicine | DX: G47.33 Obstructive sleep apnea (adult) (pediatric) (principal) | CPT/HCPCS: 95811 ==

== ENCOUNTER → 2023-01-07 10:38 | Outpatient (BNVA) | payer MEDICAID, SELFPAY | PROVIDERS: PCP Family Medicine Adult Medicine; Visit Provider Anesthesiology Pain Medicine | DX: G89.29 Other chronic pain (principal); M47.816 Spondylosis without myelopathy or radiculopathy, lumbar region; M25.562 Pain in left knee; M25.512 Pain in left shoulder; M19.90 Unspecified osteoarthritis, unspecified site; E66.01 Morbid (severe) obesity due to excess calories; Z68.41 Body mass index [BMI] 40.0-44.9, adult; Z68.38 Body mass index [BMI] 38.0-38.9, adult | CPT/HCPCS: 99214 ==

== ENCOUNTER → 2023-02-03 09:20 | Outpatient (BNVA) | payer MEDICAID, SELFPAY | PROVIDERS: PCP Family Medicine Adult Medicine; Visit Provider Internal Medicine | DX: R79.89 Other specified abnormal findings of blood chemistry (principal); M10.9 Gout, unspecified; M19.90 Unspecified osteoarthritis, unspecified site | CPT/HCPCS: 99213 ==

== ENCOUNTER 2023-03-29 12:21 | Emergency (ER) | payer MEDICAID, SELFPAY ==
[2023-03-29 12:27] VITALS: BP 140/80; PULSE 90; RESP 16; TEMP 36.9; O2SAT 93; BMI 39.5
--- NOTE | 2023-03-29 13:06 | W.ED.BACK ---
HPI - Back Pain/Injury General: Chief Complaint: Extremity Injury, Lower Stated Complaint: lower back pain Time Seen by Provider: 03/29/23 12:43 Source: patient Mode of arrival: ambulatory History of Present Illness: 48-year-old male presents emergency room with complaint of low back pain. This been a chronic issue for him obesity pain clinic. He has had procedures set known disc disease in the past no recent precipitating events is progressively been worsening. Most he can think it might of happened in his seat tweaked his back when he rolled over in bed. No dysuria urgency or frequency or hematuria. He has seen pain clinic in the past has not been seeing them recently. MD elicited complaint: back pain Pertinent past history: prior back pain Onset (ago): day(s) Timing: constant Severity: moderate Similar Symptoms Previously: Yes Quality: sharp Location: lumbar spine Exacerbating factors: none Relieving factors: none Associated symptoms: Deny abdominal pain, arthralgias, chills, change in bowel habits, difficulty walking, dysuria, fatigue, fecal incontinence, fever(s), hematuria, myalgias, nausea, numbness, syncope, tingling/numbness/burning, urinary frequency, urinary urgency, vomiting or weakness Review of Systems Const: Denies: fever(s), chills or fatigue Card: Denies: chest pain or syncope Resp: Denies: dyspnea, productive cough or non-productive cough GI: Denies: abdominal pain, nausea, vomiting, fecal incontinence or change in bowel habits : Denies: dysuria, urinary frequency, urinary urgency or hematuria Skin/Breast: Denies: rash or pruritus Neuro: Denies: difficulty walking PFS ED PFSH: Medical History Chronic back pain Chronic pain disorder Depression Family history of [place]'s disease Family history of rheumatoid arthritis Hypertension Morbid obesity with BMI of 40.0-44.9, adult Morbid obesity with BMI of 40.0-44.9, adult Osteoarthritis Left shoulder, left knee, chronic back pain Radiculopathy, lumbar region Uncontrolled stage 2 hypertension Surgical History History of nasal septoplasty Family History Other Cancer Diabetes Hyperlipidemia Hypertension Lupus Rheumatoid arthritis Stroke Denies family history of CAD (coronary artery disease) Chronic kidney disease (CKD) Social History Smoking and tobacco status: former smoker Alcohol intake: current Alcohol intake frequency: holidays/special occasions only Desire information about alcohol rehabilitation?: No Counseling given: No Substance/Drug Use: never Desire information about substance/drug rehabilitation?: No Counseling given: No Adopted: No Caregiver/support person: No Lives independently: Yes Marital status: Number of children: 2 Current occupational status: disabled Physical Exam Const: COMMON NORMALS: no acute distress GENERAL APPEARANCE: cooperative and comfortable ORIENTATION/CONSCIOUSNESS: Yes awake, Yes oriented to person, Yes oriented to place and Yes oriented to time HENMT: COMMON NORMALS: normocephalic, atraumatic and hearing grossly normal bilaterally HEAD & SCALP: normocephalic and atraumatic Resp: COMMON NORMALS: normal respiratory effort, No retractions, No use of accessory muscles and clear to auscultation bilaterally AUSCULTATION: clear to auscultation bilaterally Cardio: COMMON NORMALS: regular rate, regular rhythm and No murmurs present (Cardio) RATE: regular rate RHYTHM: regular rhythm Extremity: COMMON NORMALS: normal to inspection, capillary refill normal, no clubbing, cyanosis or edema, no calf tenderness and no pedal edema Neuro: SENSORIUM/ORIENTATION: Yes oriented to person, Yes oriented to place and Yes oriented to time Skin: COMMON NORMALS: no rashes or lesions noted GENERAL SKIN EXAM: no rashes or lesions noted Course Vital Signs: Vital signs: Vital Signs Temperature 98.4 F 03/29/23 12:27 Pulse Rate 86 03/29/23 13:16 Respiratory Rate 18 03/29/23 13:16 Blood Pressure 107/82 03/29/23 13:16 Pulse Oximetry 96 03/29/23 13:16 Oxygen Delivery Me thod Room Air 03/29/23 13:16 MDM - Back Pain/Injury Medical Decision Making Improved with meds given. We will put on prednisone taper increased diclofenac 75 twice daily continue baclofen follow-up with primary care return if has further problems. No red flag symptoms on his back. Medical Records I reviewed the patient's medical records. Discharge Plan Discharge Patient Disposition: Home Clinical Impression: Chronic back pain Condition: Stable Prescriptions: New prednisone 20 mg tablet 20 mg PO TID Qty: 15 0RF Rx Instructions: 1 p.o. 3 times daily x3 days, 1 p.o. twice daily x2 days, 1 p.o. daily x2 days diclofenac sodium 75 mg tablet,delayed release (DR/EC) 75 mg PO Q12H PRN (Reason: pain) Qty: 20 0RF No Action acetaminophen [Tylenol Arthritis Pain] 650 mg tablet extended release 2,600 mg PO Q8H Patient Comments: takes 4-5 daily but can take up to 10 tabs daily allopurinol 100 mg tablet See Rx Instructions .ROUTE .COMPLEX Qty: 60 5RF Dose Instruction: TAKE 2 TABLETS BY MOUTH DAILY FOR GOUT Rx Instructions: TAKE 2 TABLETS BY MOUTH DAILY FOR GOUT diclofenac sodium [Voltaren Arthritis Pain] 1 % gel 4 g topical QID Qty: 100 2RF Rx Instructions: apply to single knee, ankle, foot; for foot includes sole/toes/top of foot diclofenac potassium 50 mg tablet 50 mg PO BID Qty: 60 3RF baclofen 10 mg tablet 10 mg PO TID Qty: 90 2RF colchicine (gout) 0.6 mg capsule See Rx Instructions PO .COMPLEX Qty: 60 0RF Rx Instructions: take TID x 5 days for onset of gout flare PO PRN; lisinopril-hydrochlorothiazide 20-25 mg tablet See Rx Instructions .ROUTE .COMPLEX Qty: 60 5RF Dose Instruction: TAKE 1 TABLET BY MOUTH IN THE MORNING Rx Instructions: TAKE 2 TABLET BY MOUTH IN THE MORNING clonidine HCl 0.2 mg tablet 0.2 mg PO BID 30 Days Qty: 60 5RF (DME) BiPap See Rx Instructions .Route .MEDSUPPLY Qty: 1 0RF Rx Instructions: As directed fluticasone propionate 50 mcg/actuation spray,suspension 2 spray intranasal DAILY Qty: 16 3RF Rx Instructions: administer into each nostril amlodipine 10 mg tablet See Rx Instructions .ROUTE .COMPLEX Qty: 30 5RF Dose Instruction: TAKE 1 TABLET BY MOUTH DAILY Rx Instructions: TAKE 1 TABLET BY MOUTH DAILY Discharge Orders: Discharge ED (Routine); Ordered 03/29/23 Ordered By: John Rhodes Referrals: Forest Guo MD [Primary Care Provider] - Discharge Diet: Usual diet Discharge Activity: Increase activity as tolerated Patient Instructions: Opioid Safety, Pain Management Activity Restrictions/Additional Instructions: Follow-up with your primary care doctor or pain management for continued treatment. Chronic low back pain. Coding Level of Care Code ED Solar Project Coordination Specialist for Bony Dietrich
[2023-03-29] MEDS: orphenadrine 30 mg/mL Inj 2 mL 60 MG IVP (13:08)
[2023-03-29] MEDS: dexamethasone 10 mg/mL INJ IVP (13:08)
[2023-03-29] MEDS: ketorolac 30 mg/mL INJ IVP (13:08)
[2023-03-29 13:16] VITALS: BP 107/82; PULSE 86; RESP 18; O2SAT 96
== END 2023-03-29 14:42 | disposition home or self-care (01) ==
PROVIDERS: Emergency Provider Family Medicine; PCP Family Medicine Adult Medicine
DX: G89.29 Other chronic pain (principal); M54.50 Low back pain, unspecified; Z87.891 Personal history of nicotine dependence; I10 Essential (primary) hypertension
CPT/HCPCS: 96374; 96375; 99284; J1100; J1885; J2360

== ENCOUNTER → 2023-06-07 10:55 | Outpatient (BNVA) | payer MEDICAID, SELFPAY | PROVIDERS: PCP Family Medicine Adult Medicine; Visit Provider Anesthesiology Pain Medicine | DX: M19.019 Primary osteoarthritis, unspecified shoulder (principal); G89.29 Other chronic pain; M19.012 Primary osteoarthritis, left shoulder; M47.816 Spondylosis without myelopathy or radiculopathy, lumbar region; M25.561 Pain in right knee; M25.562 Pain in left knee; E66.01 Morbid (severe) obesity due to excess calories; Z68.41 Body mass index [BMI] 40.0-44.9, adult | CPT/HCPCS: 20610; 99214; J1030; J3490 ==

== ENCOUNTER → 2023-06-08 13:30 | Outpatient (BNVA) | payer MEDICAID, SELFPAY | PROVIDERS: PCP Family Medicine Adult Medicine; Visit Provider Internal Medicine | DX: M54.9 Dorsalgia, unspecified (principal); G89.29 Other chronic pain; M19.90 Unspecified osteoarthritis, unspecified site; M10.9 Gout, unspecified; R79.89 Other specified abnormal findings of blood chemistry | CPT/HCPCS: 36415; 80053; 84550; 85025; 85651; 86140; 99214 ==

== ENCOUNTER → 2023-08-13 08:52 | Outpatient (BNVA) | payer MEDICAID, SELFPAY | PROVIDERS: PCP Family Medicine Adult Medicine; Visit Provider Internal Medicine | DX: M47.816 Spondylosis without myelopathy or radiculopathy, lumbar region (principal); M10.9 Gout, unspecified; N18.9 Chronic kidney disease, unspecified; E87.6 Hypokalemia | CPT/HCPCS: 99214 ==

== ENCOUNTER 2024-01-04 14:23 | Emergency (ER) | payer OTHER, SELFPAY ==
[2024-01-04 14:27] VITALS: BP 130/79; PULSE 97; RESP 16; TEMP 36.6; O2SAT 97
--- NOTE | 2024-01-04 14:58 | ED_ITS ---
HPI - Skin/Abscess/Foreign Bdy 2 General: Chief complaint: Skin/Abscess/Foreign Body Stated complaint: spider bite Time Seen by Provider: 01/04/24 14:31 Source: patient Mode of arrival: ambulatory Limitations: no limitations History of Present Illness: Patient is a 48-year-old male presents to ED today with complaint of possible brown recluse bites to the lateral aspect of his right lower leg. Patient states he woke up on 12/31 and felt like he had been bit to the leg. He states he checked his sheets and found a brown recluse. Patient states he went to urgent care and was placed on topical and oral antibiotics. Patient states he is still having the sensation of swelling surrounding the bites as well as burning. He has noticed a scant amount of clear drainage. No systemic symptoms. MD complaint: insect bite/sting Onset (ago): day(s) Tetanus up to date: yes Location: RLE Severity: mild Quality: burning Pain Consistency: constant Relieving factors: none Exacerbating factors: none Context: witnessed insect bite Associated symptoms: Reports no associated symptoms; Deny fever(s), nausea or vomiting Treatments prior to arrival: antibiotic Review of Systems 2 Const: Denies: fever(s) GI: Denies: abdominal pain, nausea, vomiting or diarrhea Musc: Reports: extremity pain; Denies: neck pain, back pain, extremity swelling, joint pain or joint swelling Skin/Breast: Reports: other (spider bites R leg) Neuro: Denies: headache(s), numbness in extremities, weakness in extremities or sensory changes PFSH ED 2 PFSH: Medical History CKD (chronic kidney disease) stage 2, GFR 60-89 ml/min BMI 39.0-39.9,adult Chronic left hip pain BETHANIE treated with BiPAP Sleep study on 08/20/2022 with severe sleep apnea and titration study on 12/04/2022 with BiPAP setting of 16/12 cm as optimal Family history of [place]'s disease Chronic back pain Family history of rheumatoid arthritis Chronic pain disorder Radiculopathy, lumbar region Hypertension Depression Osteoarthritis Left shoulder, left knee, left hip, chronic back pain Surgical History History of nasal septoplasty Family History Other Cancer Diabetes Hyperlipidemia Hypertension Lupus Rheumatoid arthritis Stroke Denies family history of CAD (coronary artery disease) Chronic kidney disease (CKD) Social History Smoking and tobacco/nicotine status: former use of tobacco/nicotine Alcohol intake: current Alcohol intake frequency: holidays/special occasions only Substance/Drug Use: never Adopted: No Caregiver/support person: No Lives independently: Yes Marital status: Number of children: 2 Current occupational status: disabled Physical Exam 2 Const: COMMON NORMALS: no acute distress, no limitations, alert and well nourished Extremity: COMMON NORMALS: full ROM, capillary refill normal, no joint enlargement, no clubbing, cyanosis or edema, no calf tenderness and no pedal edema GENERAL: Yes normal exam except as noted EXTREMITY IMAGE (FRONT): 1. 2. 3. 3 small bite like lesions with about a dime sized amount of hemorrhage surrounding them-could be consistent with spider bites; no streaking or drainage; no surrounding warmth/erythema Neuro: COMMON NORMALS: moves all extremities, no focal motor deficits, no sensory deficits noted and gait normal SENSORIUM/ORIENTATION: Yes alert Skin: NARRATIVE SKIN EXAM: see above Course 2 Vital Signs: Vital signs: Vital Signs Temperature 97.8 F 01/04/24 14:27 Pulse Rate 97 01/04/24 14:27 Respiratory Rate 16 01/04/24 14:27 Blood Pressure 130/79 01/04/24 14:27 Pulse Oximetry 97 01/04/24 14:27 Oxygen Delivery Me thod Room Air 01/04/24 14:27 MDM - Skin/Abscess/Foreign Bdy Medicial Decision Making Patient certainly could be suspicious for brown recluse bites based on physical appearance. Reassurance given that most of these are self-limited. Antibiotic therapy is only geared towards preventing secondary bacterial infections. Recommend continued conservative treatment at home. Return ED precautions given. Medical Records I reviewed the patient's medical records. No radiology studies performed this visit Discharge Plan Discharge Patient Disposition: Home Clinical Impression: Brown recluse spider bite Qualifiers: Encounter type: initial encounter Injury intent: accidental or unintentional Q ualified Code(s): T63.331A - Toxic effect of venom of brown recluse spider, accidental (unintentional), initial encounter Condition: Stable Prescriptions: No Action amlodipine 10 mg tablet 10 mg PO DAILY Qty: 90 3RF allopurinol 100 mg tablet 100 mg PO BID Qty: 180 3RF clonidine HCl 0.2 mg tablet 0.2 mg PO BID 90 Days Qty: 180 3RF lisinopril-hydrochlorothiazide 20-25 mg tablet 2 tab PO DAILY 90 Days Qty: 180 3RF naproxen 500 mg tablet 500 mg PO BID PRN (Reason: pain) Qty: 100 3RF potassium chloride [Klor-Con M20] 20 mEq tablet,ER particles/crystals 20 meq PO DAILY Qty: 90 3RF tizanidine 4 mg capsule 4 mg PO Q8H PRN (Reason: muscle spasticity) Qty: 90 3RF colchicine 0.6 mg tablet 0.6 mg PO TIDWMEAL Qty: 30 2RF Rx Instructions: Take one tab three times daily with meals for x5 days sulfamethoxazole-trimethoprim [Bactrim DS] 800-160 mg tablet 1 tab PO BID 7 Days Qty: 14 0RF mupirocin 2 % ointment 1 applic topical BID Qty: 15 0RF diclofenac sodium [Voltaren Arthritis Pain] 1 % gel 4 g topical QID Qty: 100 3RF Rx Instructions: apply to single knee, ankle, foot; for foot includes sole/toes/top of foot fluticasone propionate 50 mcg/actuation spray,suspension 2 spray intranasal DAILY Qty: 48 3RF Rx Instructions: administer into each nostril (DME) BiPap supplies, tubing & mask See Rx Instructions .Route .MEDSUPPLY Qty: 1 5RF Rx Instructions: Home equipment use As directed hydrocodone-acetaminophen 7.5-325 mg tablet 1 tab PO Q12H PRN (Reason: pain) 30 Days Qty: 60 0RF Discharge Orders: Discharge ED (Routine); Ordered 01/04/24 Ordered By: Shelley Cline Referrals: Forest Guo MD [Primary Care Provider] - Patient Instructions: Brown Recluse Spider Bite Coding Level of Care Code ED Security Operations Engineer for Chg Kaur
== END 2024-01-04 15:09 | disposition home or self-care (01) ==
PROVIDERS: Emergency Provider Physician Assistant; PCP Family Medicine Adult Medicine
DX: T63.331A Toxic effect of venom of brown recluse spider, accidental (unintentional), initial encounter (principal); Z87.891 Personal history of nicotine dependence; I12.9 Hypertensive chronic kidney disease with stage 1 through stage 4 chronic kidney disease, or unspecified chronic kidney disease; N18.2 Chronic kidney disease, stage 2 (mild)
CPT/HCPCS: 99281

== ENCOUNTER → 2024-02-15 09:27 | Outpatient (BNVA) | payer OTHER, SELFPAY | PROVIDERS: PCP Family Medicine Adult Medicine; Visit Provider Family Medicine Adult Medicine | DX: N18.2 Chronic kidney disease, stage 2 (mild) (principal); I10 Essential (primary) hypertension; M1A.09X0 Idiopathic chronic gout, multiple sites, without tophus (tophi); M47.816 Spondylosis without myelopathy or radiculopathy, lumbar region; M54.9 Dorsalgia, unspecified; G89.29 Other chronic pain; M19.90 Unspecified osteoarthritis, unspecified site | CPT/HCPCS: 80053; G0103 ==

== ENCOUNTER 2024-03-15 03:52 | Emergency (ER) | payer OTHER, SELFPAY ==
[2024-03-15 03:56] VITALS: BP 138/94; PULSE 90; RESP 18; TEMP 36.7; O2SAT 98; BMI 38.7
--- NOTE | 2024-03-15 03:59 | W.ED.EXTPRO ---
HPI - Extremity Problem General: Chief complaint: Extremity Injury, Upper Stated complaint: Lower back pain and shoulder pain Time Seen by Provider: 03/15/24 03:57 History of Present Illness: Patient presents to the ER complaining of left hip and left shoulder pain. This is from a fall that happened approximately 2 days ago. Patient has been trying his routine hydrocodone at home as well as hot compresses but the pain just keeps getting worse. Patient says he has not torn ligaments in his left shoulder and that this is worse than normal pain. Patient is able to bear weight on his left leg and states that when he takes his left arm away from his body it causes his shoulder area to hurt worse. Related Data Previous Rx's Medication Instructions Recorded diclofenac sodium 1 % topical gel 4 g topical QID #100 grams 09/08/23 (Voltaren Arthritis Pain) fluticasone propionate 50 2 spray intranasal DAILY #48 grams 10/29/23 mcg/actuation nasal spray,suspension allopurinol 100 mg tablet 100 mg PO BID gout #180 tabs 11/04/23 amlodipine 10 mg tablet 10 mg PO DAILY blood pressure #90 11/04/23 tabs clonidine HCl 0.2 mg tablet 0.2 mg PO BID Hypertension 90 days 11/04/23 #180 tabs lisinopril 20 2 tab PO DAILY high blood pressure 11/04/23 mg-hydrochlorothiazide 25 mg tablet 90 days #180 tabs potassium chloride 20 mEq 20 meq PO DAILY Low potassium #90 11/04/23 tablet,extended tabs release(part/cryst) (Klor-Con M) tizanidine 4 mg capsule 4 mg PO Q8H PRN muscle spasticity 11/04/23 #90 caps BiPap supplies, tubing & mask #1 ea 11/10/23 mupirocin 2 % topical ointment 1 applic topical BID #15 grams 01/01/24 celecoxib 100 mg capsule (Celebrex) 100 mg PO BID PRN pain #60 caps 01/04/24 colchicine 0.6 mg tablet 0.6 mg PO TIDWMEAL Gout flares #30 02/15/24 tabs hydrocodone 7.5 mg-acetaminophen 1 tab PO Q12H PRN pain 30 days #60 02/22/24 325 mg tablet tabs Allergies Allergy/AdvReac Type Severity Reaction Status Date / Time shellfish derived Allergy Severe ALGY-Swell Verified 03/15/24 03:59 Lip/Tongue/Throat morphine AdvReac Mild ADR-Gastrointestinal Verified 03/15/24 03:59 Upset Review of Systems General: Reports: 10 or more systems reviewed and unremarkable except in HPI and below PFSH ED PFSH: Medical History CKD (chronic kidney disease) stage 2, GFR 60-89 ml/min BMI 39.0-39.9,adult Chronic left hip pain BETHANIE treated with BiPAP Sleep study on 08/20/2022 with severe sleep apnea and titration study on 12/04/2022 with BiPAP setting of 16/12 cm as optimal Family history of [place]'s disease Chronic back pain Family history of rheumatoid arthritis Chronic pain disorder Radiculopathy, lumbar region Hypertension Depression Osteoarthritis Left shoulder, left knee, left hip, chronic back pain Surgical History History of nasal septoplasty Family History Other Cancer Diabetes Hyperlipidemia Hypertension Lupus Rheumatoid arthritis Stroke Denies family history of CAD (coronary artery disease) Chronic kidney disease (CKD) Social History Smoking and tobacco/nicotine status: former use of tobacco/nicotine Alcohol intake: current Alcohol intake frequency: holidays/special occasions only Substance/Drug Use: never Adopted: No Caregiver/support person: No Lives independently: Yes Marital status: Number of children: 2 Current occupational status: disabled Physical Exam Const: COMMON NORMALS: no acute distress, average body habitus, patient oriented x3, no limitations, healthy appearing, alert and well nourished HENMT: COMMON NORMALS: normocephalic, atraumatic, hearing grossly normal bilaterally, external ears normal, Normal external nose present and moist oral mucous membranes HEAD & SCALP: normocephalic and atraumatic NOSE: Normal external nose present EXTERNAL EAR: Yes external ears normal Neck/C-Spine: COMMON NORMALS: no JVD Chest: COMMONS NORMALS: normal inspection of the chest and normal palpation of entire chest wall Resp: COMMON NORMALS: normal respiratory effort, No retractions, No use of accessory muscles and clear to auscultation bilaterally AUSCULTATION: clear to auscultation bilaterally Cardio: COMMON NORMALS: no JVD, regular rate, regular rhythm, S1 normal heart sound present, S2 normal heart sound present, No gallops present (Cardio), No clicks present (Cardio), No murmurs present (Cardio) and No rub (Cardio) RATE: regular rate RHYTHM: regular rhythm HEART SOUNDS: S1 normal heart sound present and S2 normal heart sound present GI: COMMON NORMALS: Normal to inspection, nondistended, normoactive bowel sounds present, Soft to palpation, non-tender, No hepatosplenomegaly present and no masses PALPATION: Yes Soft to palpation and Yes No hepatosplenomegaly present Extremity: NARRATIVE EXTREMITY EXAM: Pain with palpation over anterior and posterior shoulder joint region. Limited range of motion especially with abduction secondary to pain. No obvious crepitus or deformity noted. Neuro: COMMON NORMALS: patient oriented x3 SENSORIUM/ORIENTATION: Yes alert Course Vital Signs: Vital signs: Vital Signs Temperature 98.0 F 03/15/24 03:56 Pulse Rate 88 03/15/24 04:30 Respiratory Rate 16 03/15/24 04:30 Blood Pressure 146/89 03/15/24 04:30 Pulse Oximetry 96 03/15/24 04:30 Oxygen Delivery Me thod Room Air 03/15/24 03:56 MDM - Extremity (Nontraumatic) Medical Decision Making X-rays of patient's left shoulder and left hip was obtained preliminarily read by myself is negative for acute fracture, patient given Toradol and Norflex 60 mg each IM. Patient be discharged home to follow-up with his PCP Lab Data I reviewed the patient's lab results. All radiology interpretation(s) finalized by discharge Discharge Plan Discharge Patient Disposition: Home Clinical Impression: Acute pain of left shoulder, Acute pain of left hip Fall Qualifiers: Encounter type: initial encounter Qualified Code(s): W19.XXXA - Unspecified fall, initial encounter Condition: Stable Prescriptions: No Action amlodipine 10 mg tablet 10 mg PO DAILY Qty: 90 3RF allopurinol 100 mg tablet 100 mg PO BID Qty: 180 3RF clonidine HCl 0.2 mg tablet 0.2 mg PO BID 90 Days Qty: 180 3RF lisinopril-hydrochlorothiazide 20-25 mg tablet 2 tab PO DAILY 90 Days Qty: 180 3RF potassium chloride [Klor-Con M20] 20 mEq tablet,ER particles/crystals 20 meq PO DAILY Qty: 90 3RF tizanidine 4 mg capsule 4 mg PO Q8H PRN (Reason: muscle spasticity) Qty: 90 3RF colchicine 0.6 mg tablet 0.6 mg PO TIDWMEAL Qty: 30 2RF Rx Instructions: Take one tab three times daily with meals for x5 days mupirocin 2 % ointment 1 applic topical BID Qty: 15 0RF diclofenac sodium [Voltaren Arthritis Pain] 1 % gel 4 g topical QID Qty: 100 3RF Rx Instructions: apply to single knee, ankle, foot; for foot includes sole/toes/top of foot fluticasone propionate 50 mcg/actuation spray,suspension 2 spray intranasal DAILY Qty: 48 3RF Rx Instructions: administer into each nostril (DME) BiPap supplies, tubing & mask See Rx Instructions .Route .MEDSUPPLY Qty: 1 5RF Rx Instructions: Home equipment use As directed celecoxib [Celebrex] 100 mg capsule 100 mg PO BID PRN (Reason: pain) Qty: 60 3RF hydrocodone-acetaminophen 7.5-325 mg tablet 1 tab PO Q12H PRN (Reason: pain) 30 Days Qty: 60 0RF Discharge Orders: Discharge ED (Routine); Ordered 03/15/24 Ordered By: Luis Bartlett Referrals: Forest Guo MD [Primary Care Provider] - 1 week Patient Instructions: Shoulder Pain (ED), Hip Pain (ED) Activity Restrictions/Additional Instructions: your x-rays did not reveal any traumatic bony injury,. Please follow-up with your [facility] for further evaluation testing as needed. Please continue your chronic pain medicine as previously prescribed. Thank you for choosing [facility] for your healthcare needs today. Please realize that you were seen in the emergency department and that we are providing you with an emergency medical screening exam and this may not be a complete and all exclusive of all testing and/or medical workup we may need to determine your element or severity of your illness. It is very important that you follow-up as instructed with your primary care provider or specialist for the additional evaluation and to discuss your medical treatment plan. You may return to the emergency department should you have concerns or if your condition changes or worsens in any way. Coding Level of Care Code ED Stopper Grinder for Bony Dietrich
--- NOTE | 2024-03-15 04:05 | XRR_ITS ---
PROCEDURE INFORMATION: Exam: XR Left Hip Exam date and time: 03/15/2024 4:22 AM Age: 49 years old Clinical indication: Injury or trauma; Fall; Blunt trauma (contusions or hematomas); Left; Hip; Additional info: Fall pain TECHNIQUE: Imaging protocol: Radiologic exam of the left hip. Views: 2 or 3 views hip with pelvis when performed. COMPARISON: CT abdomen pelvis w con* [id number] 06/30/2022 8:02 PM FINDINGS: Bones/joints: Unremarkable. No acute fracture. Soft tissues: Unremarkable. XR/XR hip LT 2-3V wo/w pel* [id number] IMPRESSION: No acute findings.
--- NOTE | 2024-03-15 04:05 | XRR_ITS ---
PROCEDURE INFORMATION: Exam: XR Left Shoulder Exam date and time: 03/15/2024 4:22 AM Age: 49 years old Clinical indication: Injury or trauma; Fall; Blunt trauma (contusions or hematomas); Shoulder; Left; Additional info: Fall pain TECHNIQUE: Imaging protocol: Radiologic exam of the left shoulder. Views: 2 or more views. COMPARISON: CR XR shoulder LT min 2V* [id number] 06/10/2022 7:05 AM FINDINGS: Bones/joints: No acute fracture or dislocation. Mild bony spurring along the inferior margin of the acromioclavicular joint, not significantly changed compared to 06/10/2022. Soft tissues: Visualized soft tissues are within normal limits. XR/XR shoulder LT min 2V* [id number] IMPRESSION: No acute fracture or dislocation.
[2024-03-15] MEDS: orphenadrine 30 mg/mL Inj 2 mL 60 MG IM (04:11)
[2024-03-15] MEDS: ketorolac 60 mg/2 mL INJ IM (04:12)
[2024-03-15 04:30] VITALS: BP 146/89; PULSE 88; RESP 16; O2SAT 96
[2024-03-15 05:32] VITALS: BP 110/84; PULSE 87; RESP 16; O2SAT 95
== END 2024-03-15 05:37 | disposition home or self-care (01) ==
PROVIDERS: Emergency Provider Emergency Medicine; PCP Family Medicine Adult Medicine
DX: M25.552 Pain in left hip (principal); M25.512 Pain in left shoulder; Z87.891 Personal history of nicotine dependence; I12.9 Hypertensive chronic kidney disease with stage 1 through stage 4 chronic kidney disease, or unspecified chronic kidney disease; N18.2 Chronic kidney disease, stage 2 (mild)
CPT/HCPCS: 73030; 73502; 96372; 99284; J1885; J2360

== ENCOUNTER → 2024-08-28 09:14 | Outpatient (BNVA) | payer OTHER, SELFPAY | PROVIDERS: PCP Family Medicine; Visit Provider Family Medicine | DX: I10 Essential (primary) hypertension (principal); R79.89 Other specified abnormal findings of blood chemistry; N18.31 Chronic kidney disease, stage 3a | CPT/HCPCS: 80053; 80061; 82306; 83036; 84439; 84443; 85025 ==

== ENCOUNTER → 2024-09-20 08:02 | Outpatient (BNVA) | payer OTHER, SELFPAY | PROVIDERS: PCP Family Medicine; Visit Provider Student in an Organized Health Care Education/Training Program | DX: M25.512 Pain in left shoulder (principal); G89.29 Other chronic pain; M19.012 Primary osteoarthritis, left shoulder; M75.42 Impingement syndrome of left shoulder | CPT/HCPCS: 73030 ==

== ENCOUNTER → 2025-02-27 08:11 | Outpatient (BNVA) | payer OTHER, SELFPAY | PROVIDERS: PCP Family Medicine; Visit Provider Family Medicine | DX: E78.00 Pure hypercholesterolemia, unspecified (principal); Z12.5 Encounter for screening for malignant neoplasm of prostate; I10 Essential (primary) hypertension; E55.9 Vitamin D deficiency, unspecified; N18.31 Chronic kidney disease, stage 3a | CPT/HCPCS: 80053; 80061; 82310; 83970; G0103 ==

== ENCOUNTER 2025-03-03 15:31 | Emergency (ER) | payer OTHER, SELFPAY ==
--- OUTSIDE RECORDS SUMMARY | 2017-06-15 01:20 | XMS_ITS | Continuity of Care Document ---
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 Name Role Phone Omi Olivarez MD Unavailable Unavailable Procedures Procedure Date CATARACT SURG W/IOL, 1 STAGE OFFICE/OUTPATIENT VISIT, [facility] OPHTHALMIC BIOMETRY OPHTHALMIC BIOMETRY Advance Directives Directive Yes / No Effective Date File Name No Information Encounters Encounter Description Practice Location Reason(s) For Visit Diagnoses Date Provider Providers Copied on Encounter [facility], [address] [address], [place], [place], [id number], tel:[phone] [address] [place] [address] No Information 7 Sher Braga. [address], [address], [place], [place], [address] , [place]. tel:[phone] Referring Provider: Omi Moore, [address], [place], [address] . tel:[phone] OFFICE/OUTPA TIENT VISIT, [facility], [address], [place], [place], [address], tel:[phone] [facility] No Information 7 Sher Braga. [address], [address], [place], [place], [address] , [place]. tel:[phone] Referring Provider: Omi Moore, [address], [place], [address] . tel:[phone] Family History Family Member Type Diagnosis Age At Onset No Information Payers Payer name Insurance type Covered democrat ID Authoriza tion(s) MEDICARE OF [facility] [id number] [id number] Social History Type Description Quantity Date Captured Comments Sex Male Smoking Status No Information Chief Complaint And Reason For Visit No Information Reason For Referral Reason For Referral No Information History Of Present Illness Encounter Date Complaint History Of Prese nt Illness No Information Functional Status Date Functional Assessmen t No Information Instructions Date Instruction Additional Infor mation No Information Assessments Type Assessment Date No Information Patient Care Teams Name Effective Dates (start - stop) Status Members No Information
--- OUTSIDE RECORDS SUMMARY | 2021-07-17 05:31 | XMS_ITS | Continuity of Care Document ---
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 Name Role Phone Mir Garcia MD Unavailable Unavailable Allergies, Adverse Reactions, Alerts Substance Reaction Status Criticality ONDANSETRON HCL Active No Informati on morphine Active No Information atorvastatin Active No Information levofloxacin Active No Information Medications Medication Instructions Dosage Effective Dates (start - stop) Status Comments isosorbide mononitrate ER 30 mg tablet,extended release 24 hr take 1 tablet by oral route 2 times every day in the morning 30 MG - Active clopidogrel 75 mg tablet take 1 tablet b y oral route every day 75 MG - Active pravastatin 80 mg tablet take 1 tablet b y oral route every day at bedtime - Active Lyrica 50 mg capsule take 1 capsule by oral route every day 50 MG - Active Lomotil 2.5 mg-0.025 mg tablet take 1 tablet by oral route 3 times every day as needed for Diarrhea 2.5 MG - Active magnesium oxide 500 mg capsule Take 500 mg by mouth daily. - Active nitroglycerin 0.4 mg sublingual tablet TAKE 1 TAB BY MOUTH EVERY 5 MIN NEEDED FOR CHEST PAIN. DO NOT EXCEED 3 DOSES NOTIFY IF PAIN IS NOT RELIEVED. HOLD IF SYSTOLIC BP LESS THAN OR EQUAL TO 90MMHG - Active midodrine 5 mg tablet TAKE 1 TABLET (5 M G) BY MOUTH DAILY ON DIALYSIS DAYS NEEDED FOR LOW BP - Active aspirin 81 mg tablet,delayed release take 1 tablet by oral route every day 81 MG - Active carvedilol 6.25 mg tablet take 1 tablet by oral route 2 times every day with food 6.25 MG - Active Auryxia 210 mg iron tablet take 2 tablet by oral route 3 times every day 420 MG - Active Probiotic 10 billion cell capsule take 1 cap by mouth once daily - Active Humalog U-100 Insulin 100 unit/mL subcutaneous solution 50 units per day per INSULIN PUMP 0.5 units per hour - Active Lokelma 10 gram oral powder packet Take 10 Grams by mouth daily. Takes four times per week - Active cholecalciferol (vitamin D3) 125 mcg (5,000 unit) capsule Take 50,000 Units by mouth daily. - Active lanthanum 1,000 mg chewable tablet chew 1 tablet by oral route 3 times every day with meals 1000 MG - Active Procedures Procedure Date OFFICE [id number]-WBO-NDIEUDAP BODY MASS INDEX DOCD SYST BP LT 130 MM HG DIAST BP < 80 MM HG OFFICE [id number] BODY MASS INDEX DOCD SYST BP GE 130 - 139MM HG DIAST BP < 80 MM HG Advance Directives Directive Yes / No Effective Date File Name Life Support Not Answered N/A N/A Intubation Not Answered N/A N/A Antibiotics Not Answered N/A N/A IV Fluid Support Not Answered N/A N/A Tube Feed Not Answered N/A N/A Other Directive N/A N/A WARNING:The information contained in this section is historical and is provided for information only and does not constitute a legal document or any assurance that the information is still accurate. Please verify the information with the pendleton of the legal document before using it for clinical purposes. Encounters Encounter Description Practice Location Reason(s) For Visit Diagnoses Date Provider Providers Copied on Encounter [facility], [address], [place], [place], [address] , [place] tel: [phone] No Information 1 Radha Hester. [address] [place] [address], [id number] , [place]. tel: [phone], [address], [place], [place], [address] , tel: [phone] [facility] No Information 1 Radha Hester. [address] [place], [place], [address] , . tel: [phone] OFFICE OLJJE-SUS-WQ [facility], [address], [place], [place], [address] , tel: [phone] [facility] CCM (chief complaint)C hronic Conditions (chief complaint) Body mass index [BMI] 39.0-39.9, adultAcquired absence of right leg below kneeType 2 diabetes mellitus with other circulatory complicationsDepende nce on renal dialysisAtherosclero tic heart disease of [place] coronary artery without angina pectorisPVD (peripheral vascular disease) 1 Radha Hester. [address] [place], [place], [address] , . tel: [phone] Referring Provider: Mir Sanchez, [address] [place], [address] . tel:[phone] [facility] [employer], [address], [place], [place], [address] , tel: [phone] [facility] No Information 1 Nacho Dejesus. [address] [place], [place], [address] , . tel: [phone] [facility] [employer], [address], [place], [place], [address] , tel: [phone] [facility] No Information 1 Radha Hester. [address] [place], [place], [address] , . tel: [phone] OFFICE XUYYR-UZO-IU [facility], [address], [place], [place], [address] , tel: [phone] [facility] CCM (chief complaint) Coronary artery disease involving [place] coronary artery of [place] heart with angina pectorisDiabetic polyneuropathy associated with type 2 diabetes mellitusHyperlipidem ia associated with type 2 diabetes mellitusHyperlipidem ia, unspecifiedSecondary DM with hypertension and ESRD on dialysisHypertensive chronic kidney disease with stage 5 chronic kidney disease or end stage renal diseaseEnd stage renal diseaseDependence on renal dialysisFunctional diarrhea 1 Radha Hester. [address] [place], [place], [address] , . tel: [phone] Referring Provider: Mir Sanchez, [address] [place], [address] . tel:[phone] [facility], [address], [place], [place], [address] , [place] tel: [phone] No Information 1 Radha Hester. [address] [place], [place], [address] , . tel: [phone] Family History Family Member Type Diagnosis Age At Onset Maternal grandfather Problem malignant neoplasm o f urinary bladder Mother Problem malignant neoplasm of cervix uteri Mother Problem cancer of colon Maternal grandfather Problem Diabetes mellitus Maternal grandfather Problem hypertension Daughter Problem Crohn's disease Maternal grandmother Problem malignant n eoplasm of breast in first degree relative Immunizations Vaccine Date Status Comments Fluzone Quad, preservative f ree, split virus, 0.5mL dosage administered Source: Other Registry pneumococcal polysaccharide vaccine, 23 valent administered Source: Other Regist ry Pneumococcal conjugate PCV administere d Source: Other Registry Tdap administered Source: Other R egistry Pneumococcal conjugate PCV administere d Source: Other Registry pneumococcal polysaccharide vaccine, 23 valent administered Source: Other Regist ry hepatitis B vaccine, unspeci fied formulation administered Source: Other Regist ry hepatitis B vaccine, unspeci fied formulation administered Source: Other Regist ry pneumococcal polysaccharide vaccine, 23 valent administered Source: Other Regist ry Hep B, adult, 3 dose administered Source: Other Registry Td (adult) absorbed and pres ervative free administered Source: Other Regist ry Td (adult) absorbed and pres ervative free administered Source: Other Regist ry Payers Payer name Insurance type Covered alliance party ID David brown(s) MEDICARE THIAGO [id number] BCBS ACCESS BL [id number] Social History Type Description Quantity Date Captured Comments Alcohol Use Details Unknown Caffeine Use Details Unknown Tobacco Use Status No Information Smoking Status No Information Sex Male Sexual Orientation Straight or heterosexual Gender Identity Male Chief Complaint And Reason For Visit No Information Reason For Referral Reason For Referral No Information Plan Of Treatment Date Type Action Status Goal Dietary management education , guidance, and counseling completed History Of Present Illness Encounter Date Complaint History Of Prese nt Illness Chronic Conditions *See Chronic Conditions HPI CCM Patient presents for chronic care management.Recent left dialysis shunt failure. Now has right arm access. Had dialysis today. BP low with 10mg midodrine. No new complaints.Denies chest pain, shortness of breath, palpitations or edema.Continues to monitor blood sugar via CGM. Frequently low - ranges between 30's to 90's.he has had an attempted av shunt revision in left arm, now has new in right for his continued hemodialysis [facility] Hyperlipidemia:S tatin therapy without side effects.No history of CAD, CVA or CA.Diet: none specificDM:Through insulin pump @ .5 units/hr. He checks with [employer] AMD 6-7 times day. FBG in 40s-60s. Today was 81. Through the day is fairly steady between 125-150. Eye exam due, to set up. +polyphagia, polydipsia, neuropathy (gabapentin helps). would like this to be increased or switch to generic lyrica as it worked much better for him. last a1c at dialysis was 7.8known CAD had to stop dialysis last Wednesday sec to chest pain has been fine since thenLeft Anterior DescendingMid LAD lesion is 90% stenosed. Culprit lesion. Lesion length: 25 mm. CJ flow is 2. The lesion is not complex (non high-C). The lesion was previously treated using a drug-eluting stent. The lesion has in-stent restenosis.Second Diagonal Cdexdj7vo Diag lesion is 100% stenosed. Not the culprit lesion. CJ flow is 0.Left CircumflexFirst Obtuse Marginal Mlrrao8mb Mrg lesion is 80% stenosed.Second Obtuse Marginal Ewvgrk8rv Mrg lesion is 80% stenosed.InterventionMid LAD lesionStentDrug-eluting stent was successfully placed. The stent used was a STENT RESOLUTE AMINATA [id number] [id number].Post-Intervention Lesion AssessmentThe intervention was successful. Embolic protection device was not deployed. The guidewire crossed the lesion. There were no complications.Supplies used: CATH GUIDE RUNWAY 6FR CLS 3.5 41235-731; PREP CHLORAPREP 10.5ML ORANGE [id number]; GLOVE SURG BIOGEL 7.5 85236 - CSC; INTRO SHEATH [id number] 6FR W/ WIREGUIDE GRN [id number]; PK CUSTOM CARDIAC CATH [facility] [id number]; WIREGUIDE RUNTHROUGH .014 180CM NS EXTRA FLOP 25-1011; STENT RESOLUTE AMINATA 2.48V41NR [id number] is a 0% residual stenosis post intervention. Functional Status Date Functional Assessmen t No Information Instructions Date Instruction Additional Infor rosa monitor and see vascular prn Rel ated to PVD (peripheral vascular disease) continue current att empts at aggressive risk factor modification Related to Atherosclerotic heart disease of [place] coronary artery without angina pectoris continue current reg imen and monitoring Related to Dependence on renal dialysis trying to control as best as we can, lab draws difficult so we will try to get labs from dialysis to minimize sticks Related to Type 2 diabetes mellitus with other circulatory complications continue to monitor and control of risk factors Related to Acquired absence of right leg below knee Dietary management e ducation, guidance, and counseling Related to Body mass index (BMI) 39.0-39.9, adult continue current regimen. Relate d to End stage renal disease add lomotil and tin tor for constipation Related to Functional diarrhea continue current regimen. Relate d to Hypertensive chronic kidney disease with stage 5 chronic kidney disease or end stage renal disease continue current regimen. Relate d to Dependence on renal dialysis continue current regimen. Relate d to Secondary DM with hypertension and ESRD on dialysis see DM ed at [facility] a bout changing pump seeting overnight to 0.4 units/hour as we are seeing some am lowsStatus: Able to self-manage condition. Related to Diabetic polyneuropathy associated with type 2 diabetes mellitus ldl has been at goal. Related to Hyperlipidemia associated with type 2 diabetes mellitus see cardiology today for further evaluation Related to Coronary artery disease involving [place] coronary artery of [place] heart with angina pectoris continue current regimen. Relate d to Hyperlipidemia, unspecified Assessments Type Assessment Date No Information Patient Care Teams Name Effective Dates (start - stop) Status Members No Information
[2025-03-03 15:34] VITALS: BP 124/86; PULSE 97; RESP 18; TEMP 36.9; O2SAT 96; BMI 37.5
--- NOTE | 2025-03-03 17:12 | XRR_ITS ---
PROCEDURE INFORMATION: Exam: XR Left Ribs Exam date and time: 03/03/2025 5:27 PM Age: 49 years old Clinical indication: Chest wall pain; Left; Additional info: Lt side lower rib pain post twisting injury x 4 days ago TECHNIQUE: Imaging protocol: Radiologic exam of the left ribs. Views: 2 views. COMPARISON: CR XR chest 2V* [id number] 06/30/2022 8:10 PM FINDINGS: Motion artifact limits exam. Bones/joints: Moderate degenerative changes of the AC joint and glenohumeral joint. Query healing fracture of lateral aspect of rib 6, with callus formation. Soft tissues: Normal. XR/XR ribs LT 2V* [id number] IMPRESSION: No definite acute fracture. Query healing fracture of lateral aspect of rib 6, with callus formation.
--- NOTE | 2025-03-03 17:14 | W.ED.BACK ---
HPI - Back Pain/Injury General: Chief Complaint: Back Pain/Injury Stated Complaint: upper back pain after fall on [id number] Time Seen by Provider: 03/03/25 15:54 Source: patient Mode of arrival: ambulatory Limitations: no limitations History of Present Illness: Patient is a 49-year-old male who presents the emergency department complaining of upper back pain since Wednesday. He states that he fell and went to catch himself, and thinks he strained his upper back. He has a history of chronic lower back pain for which he takes hydrocodone, states this has not been helping. Pain worse with laughing and coughing, it primarily is to the left rib cage and left upper back. No chest pain, shortness of breath, or any other symptoms at this time. No trauma. MD elicited complaint: back pain Pertinent past history: prior back pain Onset (ago): day(s) Timing: constant Severity: moderate Location: left upper back Associated symptoms: Deny abdominal pain, difficulty walking, fecal incontinence, fever(s) or syncope Related Data Previous Rx's ?Medication ?Instructions ?Recorded fluticasone propionate 50 2 spray intranasal DAILY #48 grams 10/29/23 mcg/actuation nasal spray,suspension BiPap supplies, tubing & mask #1 ea 11/10/23 mupirocin 2 % topical ointment 1 applic topical BID #15 grams 01/01/24 colchicine 0.6 mg tablet 0.6 mg PO TIDWMEAL Gout flares #30 02/15/24 tabs atorvastatin 20 mg tablet (Lipitor) 20 mg PO DAILY cholesterol #90 tabs 08/29/24 Held on 11/24/24. Instructions: Patient No Longer Taking clonidine HCl 0.2 mg tablet 0.2 mg PO BID Hypertension 90 days 10/16/24 #180 tabs allopurinol 100 mg tablet 100 mg PO BID gout #180 tabs 11/24/24 amlodipine 10 mg tablet 10 mg PO DAILY blood pressure #90 11/24/24 tabs potassium chloride 20 mEq 20 meq PO DAILY Low potassium #90 11/24/24 tablet,extended tabs release(part/cryst) (Klor-Con M) tizanidine 4 mg capsule 4 mg PO Q8H PRN muscle spasticity 12/18/24 #90 caps diclofenac sodium 1 % topical gel 4 g topical QID #100 grams 02/15/25 (Voltaren Arthritis Pain) celecoxib 100 mg capsule (Celebrex) 100 mg PO BID PRN pain #180 caps 02/27/25 hydrocodone 7.5 mg-acetaminophen 1 tab PO Q12H PRN pain 30 days #60 02/27/25 325 mg tablet tabs lisinopril 20 2 tab PO DAILY high blood pressure 02/27/25 mg-hydrochlorothiazide 25 mg tablet 90 days #180 tabs prednisone 10 mg tablets in a dose 10 mg PO DIRECTED #21 ea 03/03/25 pack Allergies Allergy/AdvReac Type Severity Reaction Status Date / Time shellfish derived Allergy Severe ALGY-Swell Verified 02/27/25 06:36 Lip/Tongue/Throat morphine AdvReac Mild ADR-Gastrointestinal Verified 02/27/25 06:36 Upset Review of Systems General: Reports: 10 or more systems reviewed and unremarkable except in HPI and below Const: Reports: other (denies trauma); Denies: fever(s), change in weight or night sweats Card: Denies: chest pain, lightheadedness or syncope Resp: Denies: dyspnea GI: Denies: abdominal pain or fecal incontinence : Denies: urinary incontinence Musc: Reports: back pain and other (Left rib pain); Denies: neck pain or extremity pain Skin/Breast: Denies: rash or skin pain Neuro: Denies: headache(s), numbness in extremities, weakness in extremities, sensory changes, lack of coordination, difficulty walking, frequent falls or involuntary movements PFSH ED PFSH: Medical History Vitamin D deficiency Hypercholesterolemia he wants to manage with diet and not statin Fasting hyperglycemia CKD stage 3a, GFR 45-59 ml/min Chronic left shoulder pain Pain management contract signed signed 07.10.24 Encounter for chronic pain management Chronic gout CKD (chronic kidney disease) stage 2, GFR 60-89 ml/min BMI 39.0-39.9,adult Chronic left hip pain BETHANIE treated with BiPAP Sleep study on 08/20/2022 with severe sleep apnea and titration study on 12/04/2022 with BiPAP setting of 16/12 cm as optimal Family history of [place]'s disease Chronic back pain Family history of rheumatoid arthritis Chronic pain disorder Radiculopathy, lumbar region Hypertension Depression Osteoarthritis Left shoulder, left knee, left hip, chronic back pain Surgical History Hx of colonoscopy History of nasal septoplasty Family History Mother Breast cancer Hyperthyroidism Graves Father Hypertension Diabetes mellitus, type 2 Other Cancer Diabetes Hyperlipidemia Lupus Rheumatoid arthritis Stroke Denies family history of CAD (coronary artery disease) Chronic kidney disease (CKD) Social History Smoking and tobacco/nicotine status: former use of tobacco/nicotine Quit status (tobacco/nicotine): has quit using Year quit tobacco: 2000 Alcohol intake: current Alcohol intake frequency: holidays/special occasions only Substance/Drug Use: never Adopted: No Caregiver/support person: No Lives independently: Yes Household members: spouse and children Marital status: Number of children: 2 Highest education level completed: High School Graduate Current occupational status: disabled 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 Physical Exam Const: COMMON NORMALS: no acute distress, patient oriented x3, no limitations, healthy appearing and alert NUTRITIONAL APPEARANCE: obese Chest: OTHER: Tender to left lateral ribs Resp: COMMON NORMALS: normal respiratory effort, No retractions, No use of accessory muscles and clear to auscultation bilaterally AUSCULTATION: clear to auscultation bilaterally Cardio: COMMON NORMALS: regular rate, regular rhythm, S1 normal heart sound present and S2 normal heart sound present RATE: regular rate RHYTHM: regular rhythm HEART SOUNDS: S1 normal heart sound present and S2 normal heart sound present Back/Pelvis: OTHER: Normal visual examination. Mild left parathoracic muscle tenderness to palpation. Full active range of motion. Extremity: COMMON NORMALS: normal to inspection and full ROM Neuro: COMMON NORMALS: patient oriented x3, moves all extremities, no focal motor deficits, no sensory deficits noted, deep tendon reflexes 2+ bilaterally and gait normal SENSORIUM/ORIENTATION: Yes alert OTHER: L3, L4, L5, and S1 nerve sensations intact. Normal knee jerk and ankle jerk reflexes. Skin: COMMON NORMALS: no rashes or lesions noted GENERAL SKIN EXAM: no rashes or lesions noted Course Vital Signs: Vital signs: Vital Signs Temperature 98.5 F 03/03/25 15:34 Pulse Rate 97 03/03/25 15:34 Respiratory Rate 18 03/03/25 15:34 Blood Pressure 124/86 03/03/25 15:34 Pulse Oximetry 96 03/03/25 15:34 Oxygen Delivery Me thod Room Air 03/03/25 15:34 MDM - Back Pain/Injury Medical Decision Making Patient presenting with left lateral rib tenderness to his left upper back as well, this was after he tried to catch himself in the fall on Wednesday. Positive tenderness to palpation along the ribs on the left, no step-off deformity. X-ray negative for any acute findings, though I do suspect this is costochondritis and will treat with steroids at home. He is not diabetic. He also already takes hydrocodone for chronic low back issues. He agrees with this plan, general return precautions given. Labs Radiology Impressions Ribs X-Ray 03/03/25 17:12 IMPRESSION: No definite acute fracture. Query healing fracture of lateral aspect of rib 6, with callus formation. Laboratory Results Urine Color Yellow (Yellow) 03/03/25 16:36 Urine Appearance Clear (CLEAR) 03/03/25 16:36 Urine pH 5.0 (5-7) 03/03/25 16:36 Ur Specific [place] 1.016 (1.005-1.030) 03/03/25 16:36 Urine Protein Negative (Negative) 03/03/25 16:36 Urine Glucose (UA) Negative (Normal) 03/03/25 16:36 Urine Ketones Negative (Negative) 03/03/25 16:36 Urine Blood Negative (Negative) 03/03/25 16:36 Urine Nitrate Negative (Negative) 03/03/25 16:36 Urine Bilirubin Negative (Negative) 03/03/25 16:36 Urine Urobilinogen 1.0 mg/dL (Negative) 03/03/25 16:36 Ur Leukocyte Esterase 2+ (Negative) A 03/03/25 16:36 Urine RBC 0-2 /hpf (0-2) 03/03/25 16:36 Urine WBC 0-5 /hpf (0-5) 03/03/25 16:36 Ur Squamous Epith Cells 0-5 /hpf (0-5) 03/03/25 16:36 Amorphous Sediment Not Reportable 03/03/25 16:36 Urine Bacteria None seen /hpf (NONE) 03/03/25 16:36 Hyaline Casts 0.81 /lpf 03/03/25 16:36 All radiology interpretation(s) finalized by discharge Discharge Plan Discharge Patient Disposition: Home Clinical Impression: Costochondritis Condition: Stable Prescriptions: New prednisone 10 mg tablets,dose pack 10 mg PO DIRECTED Qty: 21 0RF Rx Instructions: see taper instructions 6 tablets on day 1, 5 tablets on day 2, 4 tablets on day 3, 3 tablets on day 4, 2 tablets on day 5, and 1 tablet a day 6. P.o. No Action colchicine 0.6 mg tablet 0.6 mg PO TIDWMEAL Qty: 30 2RF Rx Instructions: Take one tab three times daily with meals for x5 days mupirocin 2 % ointment 1 applic topical BID Qty: 15 0RF allopurinol 100 mg tablet 100 mg PO BID Qty: 180 3RF amlodipine 10 mg tablet 10 mg PO DAILY Qty: 90 3RF potassium chloride [Klor-Con M20] 20 mEq tablet,ER particles/crystals 20 meq PO DAILY Qty: 90 3RF hydrocodone-acetaminophen 7.5-325 mg tablet 1 tab PO Q12H PRN (Reason: pain) 30 Days Qty: 60 0RF celecoxib [Celebrex] 100 mg capsule 100 mg PO BID PRN (Reason: pain) Qty: 180 3RF lisinopril-hydrochlorothiazide 20-25 mg tablet 2 tab PO DAILY 90 Days Qty: 180 3RF fluticasone propionate 50 mcg/actuation spray,suspension 2 spray intranasal DAILY Qty: 48 3RF Rx Instructions: administer into each nostril (DME) BiPap supplies, tubing & mask See Rx Instructions .Route .MEDSUPPLY Qty: 1 5RF Rx Instructions: Home equipment use As directed atorvastatin [Lipitor] 20 mg tablet 20 mg PO DAILY Qty: 90 3RF clonidine HCl 0.2 mg tablet 0.2 mg PO BID 90 Days Qty: 180 3RF tizanidine 4 mg capsule 4 mg PO Q8H PRN (Reason: muscle spasticity) Qty: 90 3RF diclofenac sodium [Voltaren Arthritis Pain] 1 % gel 4 g topical QID Qty: 100 3RF Rx Instructions: apply to single knee, ankle, foot; for foot includes sole/toes/top of foot Discharge Orders: Discharge ED (Routine); Ordered 08/09/25 Ordered By: Akash Coffman Referrals: Viki Hope MD [Primary Care Provider, [facility]] Patient Instructions: Patient Portal & Art Instructions Activity Restrictions/Additional Instructions: Chest wall pain care Summary of today?s visit: - Reason for visit: Left upper back and left rib pain after a fall while trying to catch yourself. - Tests: Chest/rib X-ray showed no broken bones or other acute findings. - Likely diagnosis: Costochondritis (inflammation where the ribs meet the cartilage in the chest wall), which is a common, painful but usually self-limited condition. What costochondritis means: - Costochondritis causes chest wall pain that is tender to touch and can be sharp with movement, deep breaths, coughing, or certain positions. It is not a heart attack or a broken rib when imaging and exam are reassuring. Medicines: - Anti-inflammatory (NSAID): Take as prescribed for pain and inflammation. Use the lowest effective dose for the shortest time needed and take with food to reduce stomach upset. Stop and seek care for black stools, vomiting blood, severe stomach pain, sudden swelling, shortness of breath, or decreased urination. - Corticosteroid: Take exactly as prescribed and do not stop early unless told to. These can quickly reduce inflammation but can have side effects (mood changes, sleep trouble, elevated blood sugar, stomach upset). Report any concerning symptoms. - Stomach protection: If a proton-pump inhibitor was prescribed with the NSAID, take it daily to lower the chance of stomach irritation or ulcers. - Avoid other [id number] NSAIDs (like ibuprofen, naproxen) unless specifically included in the plan, to prevent double-dosing. Activity and self-care: - Relative rest: For the next 1?2 weeks, avoid heavy lifting, push-ups, pulling, twisting, overhead work, or activities that clearly worsen chest wall pain. Gradually return to normal activity as symptoms improve. - Local care: Use heat or ice to the tender area 15?20 minutes up to a few times daily based on comfort. - Breathing: Take periodic gentle deep breaths to keep lungs expanded, but do not push into sharp pain. Support the chest wall with a pillow when coughing or sneezing. - Posture: Keep good posture and avoid prolonged slouched positions that strain the upper back and ribs. What to expect: - Pain often improves over days to a few weeks with rest and anti-inflammatory therapy. Symptoms can fluctuate; this is common. When to seek urgent care now: - New or worsening chest pain that is crushing, spreads to the jaw/arm/back, or comes with sweating, fainting, or severe shortness of breath. - Fever, chills, or feeling very unwell. - Coughing up blood. - Shortness of breath at rest or worsening with minimal activity. - Swelling in one leg with calf pain. - Severe or persistent vomiting, black/tarry stools, or bright red blood in stool (possible NSAID-related bleeding). When to contact the clinic (non-urgent): - Pain not improving after 1?2 weeks of treatment. - Medication side effects (stomach upset, mood/sleep changes, rash). - Questions about returning to work, sports, or physical therapy. Follow-up: - Schedule a follow-up if pain is not clearly improving within 1?2 weeks, or sooner if symptoms worsen. If pain persists or frequently recurs, additional options (such as targeted physical therapy for chest wall and thoracic mobility, and in selected refractory cases a clinician-performed local corticosteroid injection) may be considered. Additional notes for safety: - Take medicines exactly as prescribed. Do not combine alcohol with NSAIDs. If there is kidney disease, stomach ulcers, or heart disease history, NSAID use should be minimized and monitored; use the lowest effective dose for the shortest duration. - Early reassurance and avoiding overuse of the painful area help recovery. Print Language: Israeli Coding Level of Care Code ED Epic Trainer for Bony Dietrich
[2025-03-03 17:18] LABS: Glucose Urine UA Negative (Normal); Nitrate Urine Negative (Negative); Specific Gravity, Urine 1.016 (1.005-1.030)
[2025-03-03 17:23] LABS: Add Urine Microscopic? YES
== END 2025-03-03 18:49 | disposition home or self-care (01) ==
PROVIDERS: Emergency Provider Physician Assistant; PCP Family Medicine
DX: M94.0 Chondrocostal junction syndrome [Tietze] (principal); Z87.891 Personal history of nicotine dependence; I12.9 Hypertensive chronic kidney disease with stage 1 through stage 4 chronic kidney disease, or unspecified chronic kidney disease; N18.31 Chronic kidney disease, stage 3a
CPT/HCPCS: 71100; 81001; 96372; 99284; J1100; J1885